=== PATIENT | female | born 1960 | race Two or more races ===

== ENCOUNTER 2018-01-04 17:31 | Emergency (ER) | payer OTHER ==
[~2018-01-04] VITALS: Ht 149.9 cm; Wt 92.5 kg
--- NOTE | 2018-01-04 17:35 | NUR ---
AAOX3, CAME TO ER C/O EPIGASTRIC PAIN X 3 DAYS, NAUSEOUS BUT DENIES VOMITING. AWAITING MD FOR EVAL. TOOK JOHN AYOUB.
[2018-01-04 18:19] LABS: BASOPHILS % (AUTO) 0.3 % (0.0-2.0); EOSINOPHILS % (AUTO) 1.1 % (0.0-6.0); HEMATOCRIT 34 % (33-45); HEMOGLOBIN 10.9 g/dL (11.5-14.8); LYMPHOCYTES # (AUTO) 1.9 /CMM (0.8-4.8); LYMPHOCYTES % (AUTO) 29.9 % (20.0-44.0); MEAN CORPUSCULAR HEMOGLOBIN 27 PG (26.0-33.0); MEAN CORPUSCULAR HGB CONC 32 g/dl (31.0-36.0); MEAN CORPUSCULAR VOLUME 82 fL (82-100); MONOCYTES # (AUTO) 0.4 /CMM (0.1-1.30); MONOCYTES % (AUTO) 6.5 % (2.0-12.0); NEUTROPHILS % (AUTO) 62.2 % (43.0-81.0); PLATELET COUNT (AUTO) 436 /CMM (150-450); RDW COEFFICIENT OF VARIATION 16.8 (11.5-15.0); WHITE BLOOD COUNT (AUTO) 6.4 K/uL (4.3-11.0)
[2018-01-04 18:27] LABS: CALCIUM, SERUM 8.7 mg/dL (8.5-10.1); CARBON DIOXIDE 32 mmol/L (21-32); CHLORIDE 100 mmol/L (98-107); CREATININE 0.8 mg/dL (0.6-1.3); GLUCOSE 104 mg/dL (74-106); POTASSIUM 3.3 mmol/L (3.5-5.1); SODIUM SERUM 136 mmol/L (136-145); UREA NITROGEN, BLOOD 8 mg/dL (7-18)
[2018-01-04 18:33] LABS: ALANINE AMINOTRANSFERASE 15 U/L (12-78); ALKALINE PHOSPHATASE 88 U/L (46-116); ASPARTATE AMINOTRANSFERASE 13 U/L (15-37); BILIRUBIN,DIRECT 0.1 mg/dL (0.0-0.2); BILIRUBIN,TOTAL 0.4 mg/dL (0.2-1.0); LIPASE 158 U/L (73-393); TOTAL PROTEIN, SERUM 7.4 g/dL (6.4-8.2)
[2018-01-04 18:35] LABS: TROPONIN I < 0.017 ng/mL (0.00-0.056)
[2018-01-04 18:36] LABS: INR 0.94 (0.85-1.15)
[2018-01-04 18:53] LABS: APPEARANCE,URINE Clear (CLEAR); BILIRUBIN,URINE Negative (NEGATIVE); BLOOD, URINE Negative Ery/uL (NEGATIVE); COLOR,URINE Yellow (YELLOW); KETONES,URINE Negative (NEGATIVE); LEUKOCYTE ESTERASE ,URINE Moderate (NEGATIVE); NITRITE, URINE Negative (NEGATIVE); PH,URINE 5.5 (5.0-8.0); PROTEIN,URINE Negative (NEGATIVE); UGLUCOSE Negative (NEGATIVE); UROBILINOGEN,URINE 0.2 EU/dL (0.2)
--- NOTE | 2018-01-04 19:14 | NUR ---
REPORT GIVEN TO CATERINA WARREN FOR HUMBERTO.
[2018-01-04 19:43] LABS: BACTERIA,URINE Few /HPF (None Seen); RBC,URINE 0-2 /HPF (0-2); SQUAMOUS EPITHELIAL CELL,UR Few /HPF (None Seen)
[2018-01-04] MEDS ORDERED: CEFTRIAXONE 1 G VIAL ONE (20:15)
[2018-01-04] MEDS ORDERED: CEFTRIAXONE 1GM BAG (ER ONLY) 1 GM/50 ML PIGGYBACK IV ONE (20:30)
[2018-01-04 20:43] VITALS: BP 125/84
== END 2018-01-04 20:44 | disposition home or self-care (01) ==
LOC: ER 17:37
DX: N39.0 Urinary tract infection, site not specified (principal); E11.9 Type 2 diabetes mellitus without complications; Z85.3 Personal history of malignant neoplasm of breast; Z90.12 Acquired absence of left breast and nipple
CPT/HCPCS: 36415; 80048; 80076; 81001; 83690; 84484; 85025; 85730; 87086; 93005; 96365; 99285; A4216; A4606; J0696; Z7610; 81000-TC

== ENCOUNTER 2018-01-18 01:05 | Inpatient (IN) | payer OTHER ==
[~2018-01-18] VITALS: Ht 139.7 cm; Wt 82.6 kg
--- NOTE | 2018-01-18 01:20 | NUR ---
BIB [facility] C/C OF NEAR SYNCOPAL EPISODE. PT AA/OX4. "I HAVE BEEN THROWING UP BLOOD FOR THE PAST 4 DAYS AFTER MY CHEMOTHERAPY TREATMENT." NO S/S OF SOB. NO TRAUMA NOTED. SKIN PINK, WARM, DRY. PEDAL PULSES PRESENT. MOVES ALL EXTREMITIES WELL. NAD. VSS. STABLE CONDITION. WILL CONTINUE TO MONITOR.
[2018-01-18] MEDS ORDERED: ONDANSETRON 4 MG TAB.RAPDIS ONE (02:29)
[2018-01-18] MEDS ORDERED: IV NS 0.9% 1,000 ML BAG IV ONE ×2 (02:30→04:00)
[2018-01-18] MEDS ORDERED: ONDANSETRON 4 MG TAB.RAPDIS PO ONE (02:30)
[2018-01-18 02:42] LABS: BASOPHILS % (AUTO) 0.2 % (0.0-2.0); EOSINOPHILS % (AUTO) 0.1 % (0.0-6.0); HEMATOCRIT 41 % (33-45); HEMOGLOBIN 13.2 g/dL (11.5-14.8); LYMPHOCYTES # (AUTO) 0.8 /CMM (0.8-4.8); LYMPHOCYTES % (AUTO) 8.6 % (20.0-44.0); MEAN CORPUSCULAR HGB CONC 32 g/dl (31.0-36.0); MEAN CORPUSCULAR VOLUME 81 fL (82-100); MONOCYTES # (AUTO) 0.5 /CMM (0.1-1.30); MONOCYTES % (AUTO) 4.8 % (2.0-12.0); NEUTROPHILS % (AUTO) 86.3 % (43.0-81.0); RDW COEFFICIENT OF VARIATION 17.6 (11.5-15.0); RED BLOOD CELL COUNT(AUTO) 5.07 MIL/uL (4.0-5.2); WHITE BLOOD COUNT (AUTO) 9.3 K/uL (4.3-11.0)
[2018-01-18 02:47] LABS: PLATELET COUNT (AUTO) 47 /CMM (150-450)
[2018-01-18 03:03] LABS: ALBUMIN 3.2 g/dL (3.4-5.0); BILIRUBIN,DIRECT 0.1 mg/dL (0.0-0.2); BILIRUBIN,TOTAL 0.9 mg/dL (0.2-1.0); CALCIUM, SERUM 8.8 mg/dL (8.5-10.1); CREATININE 2.1 mg/dL (0.6-1.3); TOTAL PROTEIN, SERUM 8.9 g/dL (6.4-8.2)
[2018-01-18 03:09] LABS: POTASSIUM 2.7 mmol/L (3.5-5.1)
[2018-01-18 03:15] LABS: BAND % (MANUAL) 3 % (0.0-5.0); LYMPHOCYTES % (MANUAL) 11 % (16-48); MONOCYTES % (MANUAL) 5 % (0-11.0); NEUTROPHILS % (MANUAL) 81 (42-76)
[2018-01-18 03:19] LABS: INR 1.1 (0.87-1.13)
[2018-01-18] MEDS: POTASSIUM CL. PREMIX PERIPHER. 50 ML IV SCH ×4 (03:30→13:13)
[2018-01-18] MEDS ORDERED: POTASSIUM CL. PREMIX PERIPHER. 50 ML ONE ×2 (03:32→04:15)
--- NOTE | 2018-01-18 03:35 | NUR ---
BROUGHT TO CT
[2018-01-18] MEDS ORDERED: HYDROCODONE/APAP 5/325MG 1 EACH TABLET PO PRN (04:00)
[2018-01-18] MEDS ORDERED: ZOLPIDEM TARTRATE 5 MG TABLET PO PRN (04:00)
[2018-01-18] MEDS ORDERED: MAGNESIUM HYDROXIDE 30 ML UDC PO PRN (04:00)
[2018-01-18] MEDS ORDERED: ONDANSETRON HCL/PF 4 MG/2 ML VIAL IVP PRN (04:00)
[2018-01-18] MEDS ORDERED: MAG HYDROX/AL HYDROX/SIMETH 30 ML UDC PO PRN (04:00)
[2018-01-18] MEDS ORDERED: ENOXAPARIN SODIUM 40 MG/0.4 ML DISP.SYRIN SQ SCH (04:00)
[2018-01-18] MEDS ORDERED: ACETAMINOPHEN 325 MG TABLET PO PRN (04:00)
[2018-01-18] MEDS ORDERED: Z GUARD REMEDY 2 OZ OINT TP PRN (04:00)
[2018-01-18] MEDS ORDERED: MORPHINE SULFATE INJ 4 MG/ML DISP.SYRIN IV PRN (04:00)
--- NOTE | 2018-01-18 04:22 | NUR ---
RESTING IN BED COMFORTABLY WITH FAMILY AT BEDSIDE. VSS. NAD. STABLE CONDITION.
[2018-01-18] MEDS ORDERED: DEXTROSE 50%-WATER 50 ML DISP.SYRIN IV PRN (04:30)
--- NOTE | 2018-01-18 05:16 | NUR ---
ROAD TESTED PER VERBAL ORDERED BY . PT AMUBLATED WITH STEADY GAIT AND WELL TOLERATED.
--- NOTE | 2018-01-18 06:30 | NUR ---
REPORT GIVEN TO ASH CHINCHILLA
[2018-01-18 07:00] LABS: CALCIUM, SERUM 7.7 mg/dL (8.5-10.1); CREATININE 1.6 mg/dL (0.6-1.3); MAGNESIUM 1.9 mg/dL (1.8-2.4); POTASSIUM 3.1 mmol/L (3.5-5.1)
--- NOTE | 2018-01-18 07:14 | NUR ---
ENDORSED TO ONCOMING SHIFT CATERINA OLIVIER. PT STABLE CONDITION. VSS. NAD. FAMILY AT BEDSIDE.
--- NOTE | 2018-01-18 07:45 | NUR ---
INSULIN LANTUS NOT GIVEN PER NIGHTSHIFT EXECUTIVE CONSULTANT CEDRIC
--- NOTE | 2018-01-18 09:40 | NUR ---
PATIENT TRANSPORTED TO [facility]. VSS
[2018-01-18] MEDS ORDERED: INSULIN GLARGINE, 100 UNIT/ML CARTRIDGE SQ ONE ×2 (09:43→15:00)
[2018-01-18 10:00] VITALS: BP 91/49
--- NOTE | 2018-01-18 10:30 | NUR ---
HAND PACKER/PACKAGERBOW STAPLER 57 years old female admitted for syncope. Patient ambulates with assist, A/O X4, skin intact. No complaint of pain, denies nausea, no vomiting. Orientation to room, unit, staff and place call light within reach. Will notify MD for admission.
[2018-01-18] MEDS ORDERED: INSU100V27 SQ (10:38)
[2018-01-18] MEDS ORDERED: INSU300I SQ (10:38)
[2018-01-18] MEDS ORDERED: DOCU-141 PO (10:38)
[2018-01-18] MEDS ORDERED: METF-440 PO (10:38)
[2018-01-18] MEDS ORDERED: ATEN50TA PO (10:38)
[2018-01-18] MEDS ORDERED: ENAL10TA PO (10:38)
[2018-01-18] MEDS ORDERED: LORA0.5T PO (10:38)
[2018-01-18] MEDS ORDERED: TRAM50TA2 PO (10:38)
[2018-01-18] MEDS ORDERED: ASPI-1152 PO (10:38)
[2018-01-18] MEDS ORDERED: FERR325T23 PO (10:38)
[2018-01-18] MEDS ORDERED: ATOR10TA PO (10:38)
[2018-01-18 10:48] VITALS: BP 91/49
[2018-01-18] MEDS: IV NS 0.9% 1,000 ML IV PRN ×2 (10:53→21:51)
[2018-01-18] MEDS ORDERED: POTASSIUM CHLORIDE 20 MEQ TAB.PRT.SR PO ONE (11:30)
[2018-01-18 12:46] LABS: IRON, SERUM 18 ug/dl (50-175); TOTAL IRON BINDING CAPACITY 275 ug/dl (250-450)
[2018-01-18] MEDS: BLOOD SUGAR DIAGNOSTIC 1 EACH STRIP IN SCH ×3 (12:55→21:25)
[2018-01-18] MEDS: INSULIN REGULAR, HUMAN 100 UNIT/ML 3 ML VIAL SQ PRN ×2 (13:01→17:49)
[2018-01-18 13:05] LABS: CHOLESTEROL 101 mg/dL (<200); HDL CHOLESTEROL 14 mg/dL (40-60); LDL 67 mg/dL (0-99); THYROID STIMULATING HORMONE 1.597 uIU/mL (0.358-3.74); TRIGLYCERIDES 164 mg/dL (30-150)
[2018-01-18 15:43] LABS: FERRITIN 3908 ng/mL (8-388)
[2018-01-18 16:00] VITALS: BP 107/59
--- NOTE | 2018-01-18 19:00 | NUR ---
MEDICAL ASSISTANT SECRETARY CLOSING NOTES Patient is sitting up in bed, had dinner with fair appetite. Sinus rhythm HR 98 in the telemonitor. IVF infusing. Patient is cooperative, ambulates independently, standby assist. Blood sugar monitor with ISS parameter. Potassium supplemented today. No N/V during the shift, no stool, no episode of diarrhea. Home medication for recon. Dr. Davidson Bailey was informed. Will endorse to oncoming RN.
[2018-01-18 20:06] VITALS: BP 133/60
--- NOTE | 2018-01-18 21:00 | NUR ---
TRANSPORTATION MAINTENANCE SPECIALIST NOTES BS CHECKED 145. PT REFUSED TO HAVE 2 UNITS REGULAR INSULIN. EXPLAINED TO PT IMPORTANCE OF INSULIN IN HER POC BUT PT STILL REFUSED. WILL CONTINUE TO MONITOR.
[2018-01-18 23:04] LABS: TROPONIN I < 0.017 ng/mL (0.00-0.056)
[2018-01-19 00:38] VITALS: BP 112/57
[2018-01-19] MEDS: BLOOD SUGAR DIAGNOSTIC 1 EACH STRIP IN SCH ×6 (01:13→21:35)
[2018-01-19 04:00] VITALS: BP 128/65
--- NOTE | 2018-01-19 06:46 | NUR ---
HALL COORDINATOR NOTES AWAKE & RESPONSIVE. NOT IN ANY DISTRESS. NO SOB NOTED. DENIES ANY PAIN OR DISCOMFORT AT THIS TIME. ON TELE SR @ 93 WITH IVF INFUSING WELL. MONITORED ACCORDINGLY. CALL LIGHT WITHIN REACH. BED IN LOWEST POSITION. SR UP X 2 FOR SAFETY. WILL ENDORSE TO NEXT SHIFT.
[2018-01-19 07:25] LABS: BASOPHILS % (AUTO) 0.4 % (0.0-2.0); EOSINOPHILS % (AUTO) 0.4 % (0.0-6.0); HEMATOCRIT 36 % (33-45); HEMOGLOBIN 11.6 g/dL (11.5-14.8); LYMPHOCYTES # (AUTO) 1.2 /CMM (0.8-4.8); LYMPHOCYTES % (AUTO) 14.1 % (20.0-44.0); MEAN CORPUSCULAR HGB CONC 32 g/dl (31.0-36.0); MEAN CORPUSCULAR VOLUME 81 fL (82-100); MONOCYTES # (AUTO) 0.8 /CMM (0.1-1.30); NEUTROPHILS # (AUTO) 6.3 /CMM (1.8-8.9); NEUTROPHILS % (AUTO) 76.1 % (43.0-81.0); PLATELET COUNT (AUTO) 63 /CMM (150-450); RED BLOOD CELL COUNT(AUTO) 4.45 MIL/uL (4.0-5.2); WHITE BLOOD COUNT (AUTO) 8.3 K/uL (4.3-11.0)
[2018-01-19 07:40] LABS: ALANINE AMINOTRANSFERASE 11 U/L (12-78); ALBUMIN 2.5 g/dL (3.4-5.0); ALKALINE PHOSPHATASE 105 U/L (46-116); ASPARTATE AMINOTRANSFERASE 43 U/L (15-37); BILIRUBIN,TOTAL 0.5 mg/dL (0.2-1.0); CALCIUM, SERUM 7.9 mg/dL (8.5-10.1); CARBON DIOXIDE 21 mmol/L (21-32); CHLORIDE 100 mmol/L (98-107); CREATININE 1.2 mg/dL (0.6-1.3); GLUCOSE 111 mg/dL (74-106); PHOSPHORUS 2.1 mg/dL (2.5-4.9); SODIUM SERUM 134 mmol/L (136-145); TOTAL PROTEIN, SERUM 7.3 g/dL (6.4-8.2); UREA NITROGEN, BLOOD 25 mg/dL (7-18)
[2018-01-19 07:41] LABS: POTASSIUM 2.3 mmol/L (3.5-5.1)
[2018-01-19 07:42] LABS: TROPONIN I < 0.017 ng/mL (0.00-0.056)
[2018-01-19] MEDS: IV NS 0.9% 1,000 ML IV PRN ×2 (07:47→21:35)
[2018-01-19 08:00] VITALS: BP 108/55
[2018-01-19] MEDS ORDERED: POTASSIUM PHOSPHATE MM 15 MMOL in IV D5W 250 ML IV SCH (08:00)
--- NOTE | 2018-01-19 08:00 | NUR ---
RN NOTES CRITICAL LEVEL RESULT OF POTASSIUM RELAYED TO DR. CRENSHAW AND RECEIVED NEW ORDERS.
[2018-01-19 08:33] LABS: LYMPHOCYTES % (MANUAL) 12 % (16-48); MONOCYTES % (MANUAL) 7 % (0-11.0); NEUTROPHILS % (MANUAL) 81 (42-76)
[2018-01-19] MEDS: POTASSIUM CHLORIDE 20 MEQ TAB.PRT.SR PO SCH ×5 (08:48→13:10)
[2018-01-19] MEDS: POTASSIUM PHOSPHATE MM 7.5 MMOL in IV D5W 100 ML IV SCH ×2 (09:51→13:10)
[2018-01-19] MEDS: INSULIN REGULAR, HUMAN 100 UNIT/ML 3 ML VIAL SQ PRN ×4 (10:03→23:28)
--- NOTE | 2018-01-19 10:17 | NUR ---
RN NOTES DR. DAVID GARG MADE ROUNDS, DISCUSSED PLAN OF CARE WITH PATIENT AND FAMILY. PATIENT MENTION ITCHING AND BURNING TONGUE. NO NEW ORDER FROM DR. HERNANDEZ, PER MD, ITS BECAUSE OF HER CHEMO. NEEDS ATTENDED, IVF INFUSING AND TOLERATING WELL. CALL LIGHT WITHIN REACH, WILL CONTINUE TO MONITOR.
[2018-01-19] MEDS ORDERED: MAGIC MOUTHWASH MC PRN (12:00)
[2018-01-19 16:00] VITALS: BP 125/71
--- NOTE | 2018-01-19 17:20 | NUR ---
RN NOTES PATIENT'S INSULIN HELD, PER PATIENT SHE HAS NO APPETITE AT THIS TIME, REFUSING DINNER. FAMILY WILL INFORM NURSE IF PATIENT EATS DINNER.
--- NOTE | 2018-01-19 18:52 | NUR ---
RN NOTES PATIENT A/OX4, FAMILY AT BEDSIDE, STILL WITH EPISODES OF DIARRHEA, PIV ON RIGHT HAND PATENT AND FLUSHES WELL, IVF INFUSING AND TOLERATING WELL, INSULIN GIVEN, PATIENT ATE DINNER. POTASSIUM REPLETED. INFORMED DR. HERNANDEZ THIS AM RE: MED RECONCILIATION. ALL NEEDS ATTENDED TO AND MET, CALL LIGHT WITHIN REACH, WILL ENDORSE TO BARREL ENDSHAKER ADJUSTER FOR HUMBERTO.
--- NOTE | 2018-01-19 19:15 | NUR ---
MS RN OPENING NOTES RECEIVED PATIENT SITTING UP IN A CHAIR WITH HER FAMILY. PATIENT A/OX4, STILL WITH EPISODES OF DIARRHEA, NO STOOL COLLECTION WAS ORDERED, WAS MADE AWARE BUT NO NEW ORDER, PER AM RN REPORT. IV ACCESS ON RIGHT HAND, WITH SLIGHT SWELLING BUT PT REFUSED TO CHANGE IV CATH AT THIS TIME & DOES NOT WANT TO BE CONNECTED TO IFV WELL FOR NOW. PT ONLY PREFERS TO USE BRP, REFUSED TO USE BSC WHEN OFFERED DUE TO SYNCOPE DIAGNOSIS. PATIENT ATE BREAKFAST,LUNCH,DINNER & TOLERATED WELL, NO N/V EXPERIENCED PER PT. INSTRUCTED THE PT TO CALL FOR HELP WHEN NEEDS TO GET OOB FOR SAFETY, PT & SON NARDA VERBALIZED UNDERSTANDING. BED IN LOW LOCKED POSITION. SAFETY MEASURES IN PLACE. CALL LIGHT WITHIN REACH, WILL MONITOR CLOSELY.
[2018-01-19 20:00] VITALS: BP 140/65
--- NOTE | 2018-01-19 20:27 | NUR ---
NEW IV CATH INSERTED PATIENT'S IV CATH SITE NOTED TO BE SLIGHTLY SWOLLEN, LEAKING & CAUSING MILD DISCOMFORT. EARLIER PT REFUSED TO CHANGE THE IV SITE WHEN IT NOTED TO BE SLIGHTLY SWOLLEN & SHE WANTED TO BE DISCONNECTED FROM FLUIDS FOR A WHILE WHILE SITTING IN A CHAIR WITH HER FAMILY AT BED SIDE. BUT EXPLAINED TO THE PT ABOUT RISKS OF SWOLLEN & LEAKING SITE & PT AGREED TO LET THE NURSE CHANGE IV CATH. NEW IV CATH INSERTED TO RIGHT FOREARM G # 22 WITH GOOD BLOOD RETURN. NO INFILTRATION OR DISCOMFORT NOTED AT THIS TIME. PROCEDURE TOLERATED WELL BY THE PT. WILL CONTINUE TO MONITOR CLOSELY.
[2018-01-19 20:45] VITALS: BP 123/59
--- NOTE | 2018-01-19 21:23 | NUR ---
Met with patient,spouse and sons Jordna & Eh.Patient is alert and pleasant, her primary language Thai and speaks some Syriac. She lives locally with her spouse and son on the 4th floor apartment that has elevator access. She has hx of Stage 4 metastatic breast cancer on chemotherapy. Prior to admission, she was ambulatory and independent with adl's. Has no DME or homehealth reported, receives 63hrs/month IHSS. She has good family support. Patient plan to return home, family will provide ride when discharge. Addendum: 01/19/18 at 2125 by KALIE NATH RN Amended: Links added.
[2018-01-20] MEDS: BLOOD SUGAR DIAGNOSTIC 1 EACH STRIP IN SCH ×4 (01:35→12:59)
--- NOTE | 2018-01-20 02:00 | NUR ---
MS RN NOTES - ASSUME OF CARE Assumed care of patient. Patient asleep on semi-Bruce's position with son at bedside. With patent peripheral IV line FRA G#22 with NS infusing well @ 150ml/hr as ordered. Call light at bedside within easy reach. Kept bed low, locked and siderails up X2. Will monitor accordingly.
[2018-01-20] MEDS: INSULIN REGULAR, HUMAN 100 UNIT/ML 3 ML VIAL SQ PRN ×3 (04:41→13:26)
--- NOTE | 2018-01-20 04:42 | NUR ---
MS RN NOTES Blood sugar is 149. Patient refused to take insulin at this time, explained the risk 3x, patient insist to refused. Will continue to monitor accordingly.
[2018-01-20] MEDS: IV NS 0.9% 1,000 ML IV PRN (05:58)
--- NOTE | 2018-01-20 07:04 | NUR ---
MS RN CLOSING NOTES Patient asleep on semi-Bruce's position with patent peripheral IV line RFA G#22 with NS infusing well @ 150ml/hr as ordered. Able to ambulate self to toilet as needed. Son remains at bedside at all times throughout the shift. Remains free from injury, bed kept low and locked. For repeat blood works this AM. 0600AM weight - 181.8lbs, on bedscale. No loss bowel movement withint the shift. No complaints made, remains afebrile at this time. All needs attended. Call light within easy reach. Endorsed to the next shift.
--- NOTE | 2018-01-20 07:27 | NUR ---
RN OPENING NOTES RECEIVED PT. PT IS STABLE AND SLEEPING IN BED. NO S/S OF RESP DISTRESS OR SOB. PT DOES NOT APPEAR TO BE IN PAIN AT THIS TIME. PT ON RA WITH O2 SAT WNL. IV ACCESS LOCATED ON RFA 22G INFUSING NS AT 150/HR. PER BIOMEDICAL REPAIR TECHNICIAN REPORT, PT TO BE D/C TODAY 01/20/18. AWAITING MD ORDER AND [employer]. SAFETY MEASURES IN PLACE, CALL LIGHT WITHIN REACH. WILL CONTINUE TO MONITOR.
[2018-01-20 07:37] LABS: ALBUMIN 2.3 g/dL (3.4-5.0); BILIRUBIN,TOTAL 0.6 mg/dL (0.2-1.0); CALCIUM, SERUM 7.8 mg/dL (8.5-10.1); CREATININE 1.2 mg/dL (0.6-1.3); PHOSPHORUS 2.4 mg/dL (2.5-4.9); TOTAL PROTEIN, SERUM 7.2 g/dL (6.4-8.2)
[2018-01-20 07:51] LABS: BASOPHILS % (AUTO) 0.1 % (0.0-2.0); EOSINOPHILS % (AUTO) 0.7 % (0.0-6.0); HEMATOCRIT 34 % (33-45); HEMOGLOBIN 10.9 g/dL (11.5-14.8); LYMPHOCYTES # (AUTO) 1.1 /CMM (0.8-4.8); LYMPHOCYTES % (AUTO) 15.1 % (20.0-44.0); MEAN CORPUSCULAR HGB CONC 32 g/dl (31.0-36.0); MEAN CORPUSCULAR VOLUME 81 fL (82-100); MONOCYTES # (AUTO) 0.7 /CMM (0.1-1.30); MONOCYTES % (AUTO) 10.3 % (2.0-12.0); NEUTROPHILS # (AUTO) 5.3 /CMM (1.8-8.9); NEUTROPHILS % (AUTO) 73.8 % (43.0-81.0); PLATELET COUNT (AUTO) 88 /CMM (150-450); RDW COEFFICIENT OF VARIATION 17.8 (11.5-15.0); RED BLOOD CELL COUNT(AUTO) 4.23 MIL/uL (4.0-5.2); WHITE BLOOD COUNT (AUTO) 7.2 K/uL (4.3-11.0)
[2018-01-20 07:58] LABS: POTASSIUM 2.7 mmol/L (3.5-5.1)
[2018-01-20 08:00] VITALS: BP 131/62
[2018-01-20 08:55] LABS: BAND % (MANUAL) 1 % (0.0-5.0); EOSINOPHILS % (MANUAL) 2 % (0-4); LYMPHOCYTES % (MANUAL) 9 % (16-48); MONOCYTES % (MANUAL) 5 % (0-11.0); NEUTROPHILS % (MANUAL) 83 (42-76)
[2018-01-20 09:00] VITALS: BP 131/62
[2018-01-20] MEDS ORDERED: POTASSIUM CHLORIDE 10 MEQ/50 ML PREMIXED IVPB FOR PERIPHERAL LINE IV SCH (11:00)
[2018-01-20] MEDS ORDERED: POTASSIUM CHLORIDE 20 MEQ TAB.PRT.SR PO SCH (11:00)
[2018-01-20] MEDS: POTASSIUM CL. PREMIX PERIPHER. 50 ML IV SCH ×4 (11:22→13:21)
[2018-01-20] MEDS ORDERED: IV NS 0.9% 1,000 ML IV PRN (11:29)
[2018-01-20] MEDS ORDERED: K PHOS NEUTRAL 250 MG TABLET PO ONE (14:00)
[2018-01-20 16:00] VITALS: BP 132/64
[2018-01-20] MEDS ORDERED: POTA20TA83 PO (16:15)
--- NOTE | 2018-01-20 18:46 | NUR ---
DISCHARGE NOTE PT DISCHARGED HOME. NO S/S OF RESP DISTRESS/SOB. NO C/O PAIN. PRESCRIPTION GIVEN TO PT. D/C TEACHIGN PERFORMED, PT VERBALIZES UNDERSTANDING. DC INSTRUCTIONS/BELONGINGS SHEET SIGNED, COPIED, PLACED IN CHART. ID BAND AND IV ACCESS REMOVED. NO WOUND PHOTOS TO BE TAKEN. STABLE UPON DC. LEFT HOSPITAL WITH FAMILY IN PRIVATE CAR.
== END 2018-01-20 18:30 | disposition home or self-care (01) | DRG 469 ==
LOC: ER 01:10 → TELE 09:15 → MED 01-19 09:00
PROVIDERS: ADMIT Internal Medicine; ATTEND Internal Medicine
DX: N17.9 Acute kidney failure, unspecified (principal); D69.59 Other secondary thrombocytopenia; C79.9 Secondary malignant neoplasm of unspecified site; E11.65 Type 2 diabetes mellitus with hyperglycemia; E44.1 Mild protein-calorie malnutrition; C50.919 Malignant neoplasm of unspecified site of unspecified female breast; E86.0 Dehydration; E87.1 Hypo-osmolality and hyponatremia; E86.9 Volume depletion, unspecified; E87.6 Hypokalemia; I10 Essential (primary) hypertension; Z90.12 Acquired absence of left breast and nipple; E66.9 Obesity, unspecified; E78.5 Hyperlipidemia, unspecified; T45.1X5A Adverse effect of antineoplastic and immunosuppressive drugs, initial encounter; Y92.009 Unspecified place in unspecified non-institutional (private) residence as the place of occurrence of the external cause; E88.09 Other disorders of plasma-protein metabolism, not elsewhere classified; Z68.41 Body mass index [BMI] 40.0-44.9, adult; Z79.84 Long term (current) use of oral hypoglycemic drugs
CPT/HCPCS: 36415; 70450-TC; 71045-TC; 80048-TC; 80053-TC; 80061-TC; 80076-TC; 82728-TC; 82962-TC; 83540-TC; 83735-TC; 84100-TC; 84439-TC; 84443-TC; 84484-TC; 85025-TC; 85730-TC; 87081-TC; 93307-TC; A4606; J1815; J3480; J3490; J7030; J7060; Q0162; Z7610

== ENCOUNTER 2018-04-09 14:22 | Inpatient (IN) | payer OTHER ==
[~2018-04-09] VITALS: Ht 162.6 cm; Wt 89.4 kg
[~2018-04-09 14:22] MED LIST: ATEN50TA PO; ATOR10TA PO; DOCU-141 PO; ENAL10TA PO; FERR325T23 PO; INSU100V27 SQ; INSU300I SQ; LORA0.5T PO; METF-440 PO; POTA20TA83 PO; TRAM50TA2 PO
--- NOTE | 2018-04-09 14:55 | NUR ---
DR CRUM AT BEDSIDE FOR EVAL.
--- NOTE | 2018-04-09 14:58 | NUR ---
PT SATTING LOW. ERMD AWARE. PT PLACED ON 15L/MIN NON REBREATHER.
--- NOTE | 2018-04-09 15:01 | NUR ---
RADIOLOGY AT BEDSIDE FOR CHEST XRAY.
--- NOTE | 2018-04-09 16:53 | NUR ---
ULTRASOUND GUIDED THORACENTESIS DONE. 1240ML OF FLUIDS. RADIOLOGY AT BEDSIDE FOR STAT CHEST XRAY.
--- NOTE | 2018-04-09 17:07 | NUR ---
PT PLACED ON O2@4L/MIN AND SATTING AT 96%. ERMD MADE AWARE.
--- NOTE | 2018-04-09 17:52 | NUR ---
PT IS SLEEPING ON MONITOR W/ STABLE VITALS. FAMILY AT BEDSIDE. WILL CONTINUE TO MONITOR.
--- NOTE | 2018-04-09 19:14 | NUR ---
REPORT GIVEN TO ALBAN DIGGS FOR HUMBERTO.
--- NOTE | 2018-04-09 20:33 | NUR ---
PT STATES SHE IS DOING "FINE", FEELING BETTER. SITTING ON EDGE OF BED WITH AND SON AT BEDSIDE. VSS.
--- NOTE | 2018-04-09 20:59 | NUR ---
PER DR CRUM, PT PLACED ON HIGH FLOW O2, 15L VIA NRB MASK.
--- NOTE | 2018-04-09 21:12 | NUR ---
ICU 257
--- NOTE | 2018-04-09 21:18 | NUR ---
NO KOHLER CATH PER DR CRUM
[2018-04-09 21:35] LABS: BASOPHILS # (AUTO) 0.1 /CMM (0.0-0.2); EOSINOPHILS % (AUTO) 0.8 % (0.0-6.0); HEMATOCRIT 30 % (33-45); HEMOGLOBIN 9.2 g/dL (11.5-14.8); LYMPHOCYTES # (AUTO) 1.5 /CMM (0.8-4.8); LYMPHOCYTES % (AUTO) 21.8 % (20.0-44.0); MEAN CORPUSCULAR HGB CONC 31 g/dl (31.0-36.0); MEAN CORPUSCULAR VOLUME 77 fL (82-100); MONOCYTES # (AUTO) 0.4 /CMM (0.1-1.30); MONOCYTES % (AUTO) 5.3 % (2.0-12.0); NEUTROPHILS % (AUTO) 71.1 % (43.0-81.0); PLATELET COUNT (AUTO) 459 /CMM (150-450); RED BLOOD CELL COUNT(AUTO) 3.87 MIL/uL (4.0-5.2)
[2018-04-09 21:44] LABS: CALCIUM, SERUM 8.7 mg/dL (8.5-10.1); CREATININE 0.6 mg/dL (0.6-1.3); POTASSIUM 4.5 mmol/L (3.5-5.1)
--- NOTE | 2018-04-09 21:58 | NUR ---
PER DESIGN ENGINEER AGRICULTURAL EQUIPMENT ED, THEY NEED 10 MORE MINUTES BEFORE REPORT
[2018-04-09] MEDS ORDERED: ACETAMINOPHEN 325 MG TABLET PO PRN (22:00)
[2018-04-09] MEDS ORDERED: DEXTROSE 50%-WATER 50 ML DISP.SYRIN IV PRN (22:00)
[2018-04-09] MEDS ORDERED: MAG HYDROX/AL HYDROX/SIMETH 30 ML UDC PO PRN (22:00)
[2018-04-09] MEDS ORDERED: LORAZEPAM 0.5 MG TABLET PO PRN (22:00)
[2018-04-09] MEDS ORDERED: HYDROCODONE/APAP 5/325MG 1 EACH TABLET PO PRN (22:00)
[2018-04-09] MEDS ORDERED: ONDANSETRON HCL/PF 4 MG/2 ML VIAL IVP PRN (22:00)
[2018-04-09] MEDS ORDERED: Z GUARD REMEDY 2 OZ OINT TP PRN (22:00)
[2018-04-09] MEDS ORDERED: TRAMADOL HCL 50 MG TABLET PO PRN (22:00)
[2018-04-09] MEDS ORDERED: MAGNESIUM HYDROXIDE 30 ML UDC PO PRN (22:00)
[2018-04-09] MEDS ORDERED: MORPHINE SULFATE INJ 2 MG/ML DISP.SYRIN IV PRN (22:00)
[2018-04-09] MEDS: BLOOD SUGAR DIAGNOSTIC 1 EACH STRIP VI SCH (22:00)
--- NOTE | 2018-04-09 22:00 | NUR ---
PT RESTING COMFORTABLY IN ER BED ON MONITOR WITH NRB MASK AT 15L. ALL NEEDS ATTENDED TO. UPDATED FAMILY ON PLAN OF CARE.
--- NOTE | 2018-04-09 22:06 | NUR ---
REPORT GIVEN TO CLUB WAITER/WAITRESS ED
[2018-04-09] MEDS ORDERED: ALBUTEROL FS 2.5 MG/3 ML VIAL.NEB NEB PRN (22:30)
--- NOTE | 2018-04-09 22:30 | NUR ---
XRAY AT BEDSIDE
--- NOTE | 2018-04-09 23:01 | NUR ---
PT REQUESTS BLOOD GLUCOSE CHECK, [id number]
[2018-04-09 23:33] VITALS: BP 152/72
[2018-04-09 23:35] VITALS: BP 152/72
[2018-04-10] VITALS (26 sets, daily range): BP systolic 96–152; BP diastolic 43–75
--- NOTE | 2018-04-10 02:21 | NUR ---
RADAR TECHNICIAN PT WAS ADMITTED FROM ER WITH DIAGNOSIS ACUTE RESPIRATORY FAILURE WITH HYPOXIA SECONDARY TO EFFUSION, PNEUMOTHORAX. PT HAS HISTORY OF LEFT BREAST CA WITH MTS TO THE LUNGS, S/P CHEMO & RADIATION THERAPY. PT HAD LARGE MALIGNANT PLEURAL EFFUSION ON LEFT SIDE. US GUIDED THERAPEUTIC THORACENTESIS DONE AND 1250 ML OF DARK YELLOW LIQUID WAS REMOVED. PT IS AWAKE, ALERT, ORIENTED x 3. SPEECH CLEAR, FOLLOW COMMANDS, MOVES ALL EXTREMITIES, LEGS ARE WEAK. PT IS COMFORTABLE, DENIES SOB AND PAIN. PT IS ON NRBM 15 L. TOLERATES WELL. LUNGS SOUND CLEAR, DIMINISHED.VSS, AFEBRILE, SCOPE-SR. WILL CONTINUE CLOSE MONITORING.
[2018-04-10 04:45] LABS: BASOPHILS % (AUTO) 0.4 % (0.0-2.0); EOSINOPHILS % (AUTO) 1.1 % (0.0-6.0); HEMATOCRIT 30 % (33-45); LYMPHOCYTES # (AUTO) 1.6 /CMM (0.8-4.8); LYMPHOCYTES % (AUTO) 25.5 % (20.0-44.0); MEAN CORPUSCULAR HGB CONC 30 g/dl (31.0-36.0); MEAN CORPUSCULAR VOLUME 77 fL (82-100); MONOCYTES # (AUTO) 0.4 /CMM (0.1-1.30); MONOCYTES % (AUTO) 6.3 % (2.0-12.0); NEUTROPHILS # (AUTO) 4.2 /CMM (1.8-8.9); NEUTROPHILS % (AUTO) 66.7 % (43.0-81.0); PLATELET COUNT (AUTO) 409 /CMM (150-450); RED BLOOD CELL COUNT(AUTO) 3.88 MIL/uL (4.0-5.2); WHITE BLOOD COUNT (AUTO) 6.2 K/uL (4.3-11.0)
[2018-04-10 05:09] LABS: CREATININE 0.6 mg/dL (0.6-1.3); MAGNESIUM 1.8 mg/dL (1.8-2.4); PHOSPHORUS 3.6 mg/dL (2.5-4.9); POTASSIUM 4.2 mmol/L (3.5-5.1)
--- NOTE | 2018-04-10 07:00 | NUR ---
RN NOTE PATIENT TOLERATED NON-REBREATHER WELL, NO SOB NOTED, NO RESPIRATORY DISTRESS NOTED, ENDORSED TO AM SHIFT TO CONTINUE TO MONITOR PATIENT
--- NOTE | 2018-04-10 07:05 | NUR ---
RN NOTES RECEIVED PT ON BED, A/OX4,SPEECH CLEAR, FOLLOW COMMANDS, MOVES ALL EXTREMITIES, ON NON REBREATHING MASK MASK , NO SOB NOTED , SUPPORTIVE FAMILY AT THE BEDSIDE, ON TELE SR HR IN 90'S R AC IV SITE G 20 CLEAN ,DRY AND INTACT, SR UP x3, CALL LIGHT WITHIN EASY REACH, BED LOCKED AND IN LOWEST POSITION , CONTINUE TO MONITOR.
[2018-04-10] MEDS: INSULIN REGULAR, HUMAN 100 UNIT/ML 3 ML VIAL SQ PRN ×3 (07:41→17:02)
[2018-04-10] MEDS: BLOOD SUGAR DIAGNOSTIC 1 EACH STRIP VI SCH ×4 (07:43→22:23)
[2018-04-10] MEDS: DOCUSATE SODIUM 100 MG CAPSULE PO SCH ×2 (08:06→17:01)
[2018-04-10] MEDS: FERROUS SULFATE (325 MG) 325 MG/TAB TABLET PO SCH ×2 (08:07→17:01)
[2018-04-10] MEDS: METFORMIN 500 MG TABLET PO SCH ×2 (08:07→17:01)
--- NOTE | 2018-04-10 10:32 | NUR ---
RN NOTES DR. ODONNELL NOTIFED THAT THERE IS NO PLEURAL FLUID IN LAB FOR CYTOLOGY .
[2018-04-10] MEDS: ATENOLOL 50 MG TABLET PO SCH (10:46)
[2018-04-10] MEDS: ENALAPRIL MALEATE (10 MG) 10 MG TABLET PO SCH (10:46)
--- NOTE | 2018-04-10 12:00 | NUR ---
RN NOTES PT SITTING UP ON A CHAIR , TOLERATING WELL, O2 AT 3L N/C , NO DISTRESS NOTED, CONTINUE TO MONITOR.
--- NOTE | 2018-04-10 13:37 | NUR ---
RN NOTES ABG RESULTS GIVEN TO DR ODONNELL PT PLACED ON 3L O2 N/C PER MD ORDER .
[2018-04-10 13:46] LABS: ABG BASE EXCESS 9.7 mmol/L; ABG OXYGEN SATURATION 94.3 % (92.0-98.5); ABG PCO2 58.9 mmHg (35.0-45.0); ABG PH 7.403 (7.350-7.450); ABG PO2 77.1 mmHg (75.0-100.0); COHb 0.3 % (0.5-1.5); MetHb 0.6 % (0.0-1.5); O2Hb 93.5 % (94.0-97.0); SITE, ABG Right Radial; VENT MODE, BG NASAL CANNULA
--- NOTE | 2018-04-10 14:00 | NUR ---
RN NOTES PT SITTING UP, ON 3L O2N/C, NO SOB NOTED, CONTINUE TO MONITOR .
[2018-04-10] MEDS: ATORVASTATIN 10 MG TABLET PO SCH (17:04)
--- NOTE | 2018-04-10 18:27 | NUR ---
RN NOTES PT STABLE, NO SIGNIFICANT CHANGES NOTED ON THIS SHIFT , WILL ENDOSE TO TELECOMMUNICATION TOWER TECHNICIAN NURSE FOR CONTINUITY OF CARE.
[2018-04-10] MEDS: ZOLPIDEM TARTRATE 5 MG TABLET PO PRN (21:00)
[2018-04-10] MEDS: *INSULIN REGULAR(HUMULIN R)HUM 100 UNIT/ML VIAL SQ PRN (22:29)
[2018-04-11] VITALS (15 sets, daily range): BP systolic 47–142; BP diastolic 16–75
--- NOTE | 2018-04-11 04:13 | NUR ---
EXCAVATOR OPERATOR PT IS AWAKE, ALERT, ORIENTED X 3. MOVES ALL EXTREMITIES, LEGS ARE WEAK. DENIES ANY SOB, PAIN OR AANY OTHER DISTRESS. MOST OF THE TIME SHE PREFERS TO SIT ON THE CHAIR. O 2 3 L VIA N/C. VSS, AFEBRILE, SCOPE- SR. URINE OUTPUT IS ADEQUATE. FAMILY MEMBER IS AT THE BEDSIDE AT ALL TIME, HELPING PT WITH ADL.
[2018-04-11 05:18] LABS: BASOPHILS % (AUTO) 0.3 % (0.0-2.0); EOSINOPHILS % (AUTO) 0.8 % (0.0-6.0); HEMATOCRIT 30 % (33-45); HEMOGLOBIN 9.1 g/dL (11.5-14.8); LYMPHOCYTES # (AUTO) 1.3 /CMM (0.8-4.8); LYMPHOCYTES % (AUTO) 21.1 % (20.0-44.0); MEAN CORPUSCULAR HGB CONC 31 g/dl (31.0-36.0); MEAN CORPUSCULAR VOLUME 77 fL (82-100); MONOCYTES # (AUTO) 0.4 /CMM (0.1-1.30); MONOCYTES % (AUTO) 6.1 % (2.0-12.0); NEUTROPHILS # (AUTO) 4.5 /CMM (1.8-8.9); NEUTROPHILS % (AUTO) 71.7 % (43.0-81.0); PLATELET COUNT (AUTO) 423 /CMM (150-450); RED BLOOD CELL COUNT(AUTO) 3.88 MIL/uL (4.0-5.2); WHITE BLOOD COUNT (AUTO) 6.3 K/uL (4.3-11.0)
[2018-04-11 05:42] LABS: CALCIUM, SERUM 8.6 mg/dL (8.5-10.1); CREATININE 0.8 mg/dL (0.6-1.3); POTASSIUM 4.1 mmol/L (3.5-5.1)
--- NOTE | 2018-04-11 07:15 | NUR ---
EDUCATION PROGRAM SPECIALIST OPENING RECEIVED REPORT FROM PM NURSE.PT IS AWAKE, ALERT, ORIENTED X 3.SITTING IN THE CHAIR. MOVES ALL EXTREMITIES, LEGS ARE WEAK. NO SOB, NO PAIN OR NO DISTRESS NOTE AT THIS TIME. O2 3 L VIA N/C. ON MONITOR SR HR 92. FAMILY MEMBER IS AT THE BEDSIDE .SAFETY PRECAUTIONS IN PLACE. CALL LIGHT IN REACH.WILL CONTINUE TO MONITOR.
[2018-04-11] MEDS: BLOOD SUGAR DIAGNOSTIC 1 EACH STRIP VI SCH ×4 (07:48→21:15)
[2018-04-11] MEDS: INSULIN REGULAR, HUMAN 100 UNIT/ML 3 ML VIAL SQ PRN ×3 (07:49→17:49)
--- NOTE | 2018-04-11 08:21 | NUR ---
SEEN BY ,UPDATED PATIENT CONDITION.WITH LABS.AND RESULT OF C XRAY.WILL CONTINUE TO MONITOR.
[2018-04-11] MEDS: ENALAPRIL MALEATE (10 MG) 10 MG TABLET PO SCH (08:49)
[2018-04-11] MEDS: FERROUS SULFATE (325 MG) 325 MG/TAB TABLET PO SCH ×2 (08:49→17:48)
[2018-04-11] MEDS: ATENOLOL 50 MG TABLET PO SCH (08:49)
[2018-04-11] MEDS: DOCUSATE SODIUM 100 MG CAPSULE PO SCH ×2 (08:49→17:48)
[2018-04-11] MEDS: METFORMIN 500 MG TABLET PO SCH ×2 (08:49→17:48)
--- NOTE | 2018-04-11 09:30 | NUR ---
ASSEMBLY PERSON NOTE SEEN BY UPDATED ABOUT PATIENT CONDITION,SPOKE TO FAMILY.WILL CONTINUE TO MONITOR.
--- NOTE | 2018-04-11 11:30 | NUR ---
RN NOTES PATIENT AWAKE, ALERT, ORIENTED X 4. NOT ON ANY FORM OF DISTRESS. NO COMPLAINTS OF PAIN. ON NASAL CANNULA WITH O2 3 L. ON MONITOR SR HR ON THE 80'S. IV LINE ON THE RIGHT HAND G 20: INTACT AND IN PLACE, PATENT ON FLUSHING. PATIENT AMBULATORY. FAMILY MEMBER IS AT THE BEDSIDE .SAFETY PRECAUTIONS OBSERVED AND MAINTAINED IN PLACE. CALL LIGHT IN REACH.WILL CONTINUE TO MONITOR.
--- NOTE | 2018-04-11 11:30 | NUR ---
CONCRETE TESTERART PREPARATOR NOTE PATIENT TRANSFERRED TO [facility] WITH ACLS PROTOCOL IN STABLE CONDITION.FAMILY AT BEDSIDE.REPORT GIVEN TO MICAH RN FOR HUMBERTO.TOOK ALL BELONGINGS..
[2018-04-11] MEDS: ATORVASTATIN 10 MG TABLET PO SCH (17:48)
--- NOTE | 2018-04-11 19:26 | NUR ---
RN NOTES RECEIVED REPORT FROM CATERINA PEREZ FOR CONTINUITY OF CARE. ROOM PREPARED. AWAITING PATIENT'S ARRIVAL
--- NOTE | 2018-04-11 19:34 | NUR ---
RN NOTES PATIENT ENDORSED FOR CONTINUITY OF CARE. NO ACUTE CHANGES WITHIN THE SHIFT. ALL NURSING NEEDS ATTENDED AND MET. SAFETY PRECAUTIONS IN PLACE AT ALL TIMES. CALL LIGHT WITHIN REACH
--- NOTE | 2018-04-11 19:40 | NUR ---
TD RN NOTES RECEIVED PT ON BED. WITH FAMILY AT BEDSIDE. ON NASAL CANNULA 3LPM NO RESPIRATORY DISTRESS NOTED. IV ACCESS ON RAC #20 SALINE LOCK. HEAD OF BED ELEVATED. SIDE RAILS UP. CALL LIGHT WITHIN REACH. BED ALARM ON. WILL CONTINUE TO MONITOR PT CLOSELY.
[2018-04-11] MEDS: ZOLPIDEM TARTRATE 5 MG TABLET PO PRN (21:18)
[2018-04-11] MEDS: *INSULIN REGULAR(HUMULIN R)HUM 100 UNIT/ML VIAL SQ PRN (21:18)
[2018-04-12] VITALS: BP 112/49
[2018-04-12 04:00] VITALS: BP 128/54
--- NOTE | 2018-04-12 06:27 | NUR ---
TD RN NOTES NO ACUTE CHANGES NOTED THROUGHOUT THE SHIFT. DUE MEDS GIVEN. PROVIDED COMFORT AND SAFETY. HEAD OF BED ELEVATED. SIDE RAILS UP. CALL LIGHT WITHIN REACH. WILL ENDORSE TO THE AM NURSE FOR CONTINUITY OF CARE.
--- NOTE | 2018-04-12 07:30 | NUR ---
DELMI RN AM NOTES RECEIVED PT SITTING IN ON CHAIR. WITH FAMILY AT BEDSIDE. ON NASAL CANNULA 3LPM NO RESPIRATORY DISTRESS NOTED. TELEMETRY READS SR HR 89. DENIES PAIN OR DISCOMFORT AT THIS TIME. IV ACCESS ON RAC #20 SALINE LOCK. HEAD OF BED ELEVATED. SIDE RAILS UP. CALL LIGHT WITHIN REACH. BED ALARM ON. WILL CONTINUE TO MONITOR PT CLOSELY.
[2018-04-12 08:00] VITALS: BP 123/51
[2018-04-12] MEDS: BLOOD SUGAR DIAGNOSTIC 1 EACH STRIP VI SCH ×3 (08:07→17:14)
--- NOTE | 2018-04-12 08:14 | NUR ---
TD RN NOTES ACCUCHECK DONE. BS 318 MG/DL. 12 UNITS HUM R GIVEN PER SS
[2018-04-12] MEDS: METFORMIN 500 MG TABLET PO SCH ×2 (08:46→17:13)
[2018-04-12] MEDS: FERROUS SULFATE (325 MG) 325 MG/TAB TABLET PO SCH ×2 (08:46→17:13)
[2018-04-12] MEDS: DOCUSATE SODIUM 100 MG CAPSULE PO SCH ×2 (08:46→17:13)
[2018-04-12] MEDS: ATENOLOL 50 MG TABLET PO SCH (08:47)
[2018-04-12] MEDS: ENALAPRIL MALEATE (10 MG) 10 MG TABLET PO SCH (08:47)
[2018-04-12] MEDS: INSULIN REGULAR, HUMAN 100 UNIT/ML 3 ML VIAL SQ PRN ×3 (08:49→17:21)
--- NOTE | 2018-04-12 09:30 | NUR ---
[facility] RN NOTES DUE MEDS GIVEN
--- NOTE | 2018-04-12 11:47 | NUR ---
TD RN NOTES ACCUCHECK DONE. BS 274 MG/DL. 9 UNITS HUM R GIVEN PER SS
[2018-04-12 12:00] VITALS: BP 111/59
[2018-04-12 16:00] VITALS: BP 107/57
--- NOTE | 2018-04-12 16:57 | NUR ---
DELMI RN NOTES REPORT GIVEN TO ZACH DIGGS AT [facility]. PATIENT GOING TO ROOM 510 -A. SOAP GRINDER AT 1800.
[2018-04-12] MEDS: ATORVASTATIN 10 MG TABLET PO SCH (17:13)
--- NOTE | 2018-04-12 17:18 | NUR ---
TD RN NOTES ACCUCHECK DONE. BS 167 MG/DL. 3 UNITS HUM R GIVEN PER SS
[2018-04-12 17:44] LABS: OCCULT BLOOD STOOL NEGATIVE (NEGATIVE)
--- NOTE | 2018-04-12 18:43 | NUR ---
TD RN NOTES PATIENT DISCHARGED/TRANSFERRED TO [facility] PER MD IN STABLE CONDITION FOR PLEUREX CATHETER INSERTION. PROVIDED DC INSTRUCTIONS, HEALTH TEACHINGS AND MED RECON LIST. CD OF ALL DIAGNOSTICS GIVEN. RIGHT PORT A CATH AND RT AC G 20 INTACT CDI DRESSINGS. SITE CLEAR. ALL NEEDS MET. ALL BELONGINGS CHECKED AND RETURNED. ALL PAPER WORKS SIGNED. PATIENT PICKED UP BY AMBULANCE CREW AND WILL TRANSPORT PATIENT TO FACILITY RM 510-1.
== END 2018-04-12 18:45 | disposition short-term general hospital (02) | DRG 382 ==
LOC: ER 14:36 → ICU 21:32 → TELE-TD 04-11 11:25
PROVIDERS: ADMIT Internal Medicine; ATTEND Nurse Practitioner Acute Care
PROC: 0W9B3ZZ Drainage of Left Pleural Cavity, Percutaneous Approach (ICD-10-PCS; principal; 2018-04-09)
DX: C50.919 Malignant neoplasm of unspecified site of unspecified female breast (principal); J96.01 Acute respiratory failure with hypoxia; J91.0 Malignant pleural effusion; C78.01 Secondary malignant neoplasm of right lung; C78.02 Secondary malignant neoplasm of left lung; J94.8 Other specified pleural conditions; E11.9 Type 2 diabetes mellitus without complications; D47.3 Essential (hemorrhagic) thrombocythemia; C79.51 Secondary malignant neoplasm of bone; D50.9 Iron deficiency anemia, unspecified; D63.8 Anemia in other chronic diseases classified elsewhere; E78.5 Hyperlipidemia, unspecified; E66.2 Morbid (severe) obesity with alveolar hypoventilation; I10 Essential (primary) hypertension; K21.9 Gastro-esophageal reflux disease without esophagitis; Z90.12 Acquired absence of left breast and nipple; Z68.33 Body mass index [BMI] 33.0-33.9, adult; Z79.899 Other long term (current) drug therapy; Z79.84 Long term (current) use of oral hypoglycemic drugs
CPT/HCPCS: 36415; 36600; 71045-TC; 71250-TC; 76942-TC; 80048-TC; 80061-TC; 82272-TC; 82728-TC; 82962-TC; 83540-TC; 83735-TC; 84100-TC; 85025-TC; 85730-TC; 86300; 87081-TC; A4606; G0378; J1815; Z7610

== ENCOUNTER 2018-05-11 21:44 | Inpatient (IN) | payer MEDICARE, OTHER ==
[~2018-05-11] VITALS: Ht 147.3 cm; Wt 78.9 kg
--- NOTE | 2018-05-11 22:13 | NUR ---
PT BIBRA C/O SOB, HEADACHE X1 HR. PT IS AOX4. PT STATES "ITS DIFFICULT TO BREATH". PT ON MONITOR IN BED 11. WILL CONTINUE TO MONITOR.
--- NOTE | 2018-05-11 22:40 | NUR ---
FAMILY AT BEDSIDE.
[2018-05-11 23:11] LABS: BASOPHILS % (AUTO) 0.3 % (0.0-2.0); EOSINOPHILS % (AUTO) 0.4 % (0.0-6.0); HEMATOCRIT 29 % (33-45); HEMOGLOBIN 9.1 g/dL (11.5-14.8); LYMPHOCYTES # (AUTO) 1.3 /CMM (0.8-4.8); LYMPHOCYTES % (AUTO) 16.9 % (20.0-44.0); MEAN CORPUSCULAR HGB CONC 31 g/dl (31.0-36.0); MEAN CORPUSCULAR VOLUME 80 fL (82-100); MONOCYTES # (AUTO) 0.7 /CMM (0.1-1.30); MONOCYTES % (AUTO) 9.1 % (2.0-12.0); NEUTROPHILS # (AUTO) 5.7 /CMM (1.8-8.9); NEUTROPHILS % (AUTO) 73.3 % (43.0-81.0); PLATELET COUNT (AUTO) 380 /CMM (150-450); RED BLOOD CELL COUNT(AUTO) 3.64 MIL/uL (4.0-5.2); WHITE BLOOD COUNT (AUTO) 7.7 K/uL (4.3-11.0)
--- NOTE | 2018-05-11 23:13 | NUR ---
PT TAKEN TO RADIOLOGY VIA [facility]
[2018-05-11 23:30] LABS: ALANINE AMINOTRANSFERASE 15 U/L (12-78); ALBUMIN 2.3 g/dL (3.4-5.0); ALKALINE PHOSPHATASE 196 U/L (46-116); ASPARTATE AMINOTRANSFERASE 30 U/L (15-37); B-TYPE NATRIURETIC PEPTIDE 411 PG/ML (0-125); BILIRUBIN,DIRECT 0.1 mg/dL (0.0-0.2); BILIRUBIN,TOTAL 0.5 mg/dL (0.2-1.0); CALCIUM, SERUM 8.7 mg/dL (8.5-10.1); CHLORIDE 91 mmol/L (98-107); CREATININE 0.8 mg/dL (0.6-1.3); GLUCOSE 330 mg/dL (74-106); POTASSIUM 4.7 mmol/L (3.5-5.1); SODIUM SERUM 132 mmol/L (136-145); TOTAL PROTEIN, SERUM 7.7 g/dL (6.4-8.2); UREA NITROGEN, BLOOD 18 mg/dL (7-18)
[2018-05-11 23:31] LABS: CARBON DIOXIDE 40 mmol/L (21-32)
[2018-05-12] MEDS ORDERED: LEVOFLOXACIN 750 MG /D5W 150ML PIGGYBACK IV ONE
[2018-05-12] MEDS ORDERED: AZTREONAM 1 G in IV NS 0.9% 100 ML IV ONE ×2
[2018-05-12] MEDS ORDERED: AZTREONAM 1 G VIAL ONE (00:10)
[2018-05-12] MEDS ORDERED: LEVOFLOXACIN 750 MG /D5W 150ML 150 ML IV ONE (00:11)
--- NOTE | 2018-05-12 00:22 | NUR ---
URINE COLLECTED AND SENT TO LAB
[2018-05-12 00:28] LABS: APPEARANCE,URINE Cloudy (CLEAR); BILIRUBIN,URINE SMALL (NEGATIVE); BLOOD, URINE Trace-intact Ery/uL (NEGATIVE); COLOR,URINE Yellow (YELLOW); KETONES,URINE Trace (NEGATIVE); LEUKOCYTE ESTERASE ,URINE Large (NEGATIVE); NITRITE, URINE Negative (NEGATIVE); PROTEIN,URINE 30 mg/dl (NEGATIVE); UGLUCOSE Negative (NEGATIVE); UROBILINOGEN,URINE 0.2 EU/dL (0.2)
--- NOTE | 2018-05-12 00:29 | NUR ---
BED 116-2
[2018-05-12 00:49] LABS: BACTERIA,URINE Many /HPF (None Seen); SQUAMOUS EPITHELIAL CELL,UR Moderate /HPF (None Seen); WBC,URINE 51-80 /HPF (0-3)
[2018-05-12 00:50] LABS: MUCUS,URINE Few /LPF (None Seen)
--- NOTE | 2018-05-12 00:58 | NUR ---
CALLED TO GIVE REPORT TO TELE NURSE. NURSE TO CALL BACK.
--- NOTE | 2018-05-12 01:04 | NUR ---
REPORT GIVEN TO CATERINA HILL
--- NOTE | 2018-05-12 01:24 | NUR ---
ZAID ENDORSED TO FLOOR
[2018-05-12 01:30] VITALS: BP 131/78
[2018-05-12] MEDS ORDERED: ACETAMINOPHEN 325 MG TABLET PO PRN (01:30)
[2018-05-12] MEDS ORDERED: MAGNESIUM HYDROXIDE 30 ML UDC PO PRN (01:30)
[2018-05-12] MEDS ORDERED: ZOLPIDEM TARTRATE 5 MG TABLET PO PRN (01:30)
[2018-05-12] MEDS ORDERED: FUROSEMIDE 100 MG/10 ML VIAL IV ONE (01:30)
[2018-05-12] MEDS ORDERED: MAG HYDROX/AL HYDROX/SIMETH 30 ML UDC PO PRN (01:30)
[2018-05-12] MEDS ORDERED: DEXTROSE 50%-WATER 50 ML DISP.SYRIN IV PRN (01:30)
[2018-05-12] MEDS ORDERED: BLOOD SUGAR DIAGNOSTIC 1 EACH STRIP VI SCH (01:30)
[2018-05-12] MEDS ORDERED: ONDANSETRON HCL/PF 4 MG/2 ML VIAL IVP PRN (01:30)
[2018-05-12] MEDS ORDERED: LEVOFLOXACIN 750 MG /D5W 150ML 750 MG in PREMIX 1 EA IV ONE (02:00)
[2018-05-12] MEDS ORDERED: FUROSEMIDE 20 MG/2 ML VIAL IV ONE (02:00)
[2018-05-12] MEDS ORDERED: PIPERACILLIN /TAZOBACTAM 3.375 G in IV D5W 50 ML IV ONE (02:00)
--- NOTE | 2018-05-12 03:00 | NUR ---
RN admitting notes Received patient from ER via gurney, transported via ACLS. Patient in no acute distress. connected to tele, SR at 70s. on 4Lpm of O2 via NC, wheezing noted on upper lobes and diminished breath sounds on lower lobes. patient unable to lay flat, uncomfortable even with pillows and HOB elevated. Patient preferred to rest sitting up in chair. skin is intact. noted with R IJ port-a-cath, L lower back Pleurx, dressing intact. IV ATB as ordered. son at bedside at all times. needs anticipated and met. call light in reach. will monitor closely.
[2018-05-12] MEDS ORDERED: PIPERACILLIN /TAZOBACTAM 3.375 G VIAL IV ONE (03:28)
[2018-05-12] MEDS: HEPARIN SODIUM, PORCINE 5000 UNITS/1 ML VIAL SQ SCH ×3 (03:37→21:54)
[2018-05-12 04:00] VITALS: BP 106/52
[2018-05-12] MEDS ORDERED: INSULIN REGULAR, HUMAN 100 UNIT/ML 10 ML VIAL SQ ONE (05:00)
[2018-05-12] MEDS ORDERED: PIPERACILLIN /TAZOBACTAM 3.375 G in IV D5W 50 ML IV SCH (06:00)
[2018-05-12 06:28] LABS: BASOPHILS % (AUTO) 0.2 % (0.0-2.0); EOSINOPHILS % (AUTO) 0.5 % (0.0-6.0); HEMATOCRIT 29 % (33-45); LYMPHOCYTES # (AUTO) 1.4 /CMM (0.8-4.8); LYMPHOCYTES % (AUTO) 20.6 % (20.0-44.0); MEAN CORPUSCULAR HGB CONC 31 g/dl (31.0-36.0); MEAN CORPUSCULAR VOLUME 79 fL (82-100); MONOCYTES # (AUTO) 0.5 /CMM (0.1-1.30); MONOCYTES % (AUTO) 7.7 % (2.0-12.0); NEUTROPHILS # (AUTO) 4.9 /CMM (1.8-8.9); PLATELET COUNT (AUTO) 393 /CMM (150-450); RED BLOOD CELL COUNT(AUTO) 3.64 MIL/uL (4.0-5.2); WHITE BLOOD COUNT (AUTO) 6.9 K/uL (4.3-11.0)
[2018-05-12 06:45] LABS: CALCIUM, SERUM 8.7 mg/dL (8.5-10.1); CREATININE 0.8 mg/dL (0.6-1.3); POTASSIUM 4.2 mmol/L (3.5-5.1)
[2018-05-12 06:46] LABS: MAGNESIUM 1.4 mg/dL (1.8-2.4); PHOSPHORUS 3.3 mg/dL (2.5-4.9)
--- NOTE | 2018-05-12 07:03 | NUR ---
RN NOTE received critical value of carbon dioxide = 41. previous value at ER prior to admit is 40. patient has been on 4Lpm via NC overnight, no distress. paged Epic on-call, awaiting call back. will endorse accordingly. Addendum: 05/12/18 at 0708 by SERGIO MONTE RN [address] Falcon[facility] relayed critical value of CO2=41. NNO at this time.
--- NOTE | 2018-05-12 07:47 | NUR ---
NURSE EMERGENCY ROOM NOTES RECEIVED PT FROM [facility]. PT SITTING ON THE CHAIR WAITING FOR HER BREAKFAST TRAY. SHE IS ALERT AND ORIENTED X4. NO COMPLAINS OF PAIN. ON NC 4L. NO SOB. NO DISCOMFORT. CALL LIGHT WITHIN REACH. WILL MONITOR CLOSELY. Addendum: 05/12/18 at 1755 by TRISTAN BURDEN RN 07 PT WITH PORTHA CATH ON THE R CHEST WALL. AND LEFT POSTERIOR MID CHEST PLEURA VAC DRAINAGE TUBE IN PLACED AND CLAMPED.
[2018-05-12 08:00] VITALS: BP 98/55
[2018-05-12] MEDS: *INSULIN REGULAR(HUMULIN R)HUM 100 UNIT/ML VIAL SQ PRN ×4 (08:48→21:53)
[2018-05-12] MEDS: PIPERACILLIN /TAZOBACTAM 3.375 G in IV D5W 100 ML IV SCH ×2 (08:53→17:24)
[2018-05-12] MEDS: BLOOD SUGAR DIAGNOSTIC 1 EACH STRIP VI SCH ×4 (08:54→21:25)
[2018-05-12] MEDS: Magnesium 1GM/D5W 100ML PREMIX 100 ML IV SCH ×4 (10:09→13:37)
--- NOTE | 2018-05-12 11:08 | NUR ---
CASE FINISHING MACHINE ADJUSTER NOTE PT UP ON THE CHAIR. FAMILY ON BEDSIDE. ON MAGNESIUM IV DUE TO LOW LEVEL OF MG. COMPLAINED OF FLUSHING OF FACE. VS 100/42 94% ON 4L NC 85 98.3. WILL NOTIFY DOCTOR. FAMILY NOTICED POOR APPETITE. JANELLE RN X RAY SERVICE ENGINEER OK'D TO ORDER DIETARY CONSULT. WILL MONITOR PT CLOSELY.
[2018-05-12 12:00] VITALS: BP 106/56
--- NOTE | 2018-05-12 12:16 | NUR ---
ASSET PROTECTION REPRESENTATIVE NOTES DR HERNANDEZ ON BEDSIDE. AWARE ABOUT THE PATIENT'S FLUSHING FACE. FAMILY ON BEDSIDE WELL. Addendum: 05/12/18 at 1223 by MIRTHA PALMA RN DR HERNANDEZ ALSO AWARE OF THE CHEST XRAY RESULT. WILL F/U WITH DR CRENSHAW [employer] POL[employer] LAUNCH COMMANDER.
--- NOTE | 2018-05-12 13:07 | NUR ---
[facility] RN NOTE PER DIETARY OK TO ORDER GLUCERNA TID , ORDER CARRIED OUT
--- NOTE | 2018-05-12 15:17 | NUR ---
MANAGER LOSS PREVENTION NOTES ROUNDS MADE. NOT IN DISTRESS. FAMILY ON BEDSIDE. WILL CONT TO MONITOR.
[2018-05-12 16:00] VITALS: BP_SYST 138; BP_DIAS 56; BP_DIAS 66
[2018-05-12] MEDS: GLUCERNA SHAKE 237 ML CAN PO SCH (17:28)
--- NOTE | 2018-05-12 18:48 | NUR ---
RECREATION LEADER NOTE PT ON CHAIR. FAMILY ON BEDSIDE. NOT IN DISTRESS. CONT ZOSYN ORDERED. ON OXYGEN 4L NC. NO SOB. WILL CONT TO MONITOR CLOSELY.
[2018-05-12 20:00] VITALS: BP 151/75
[2018-05-13] VITALS: BP 136/70
[2018-05-13] MEDS ORDERED: FUROSEMIDE 20 MG/2 ML VIAL IV SCH
[2018-05-13] MEDS ORDERED: FUROSEMIDE 40 MG/4 ML VIAL IV SCH
[2018-05-13 00:01] LABS: ABG BASE EXCESS 14.4 mmol/L; ABG OXYGEN SATURATION 95.8 % (92.0-98.5); ABG PCO2 47.5 mmHg (35.0-45.0); ABG PH 7.529 (7.350-7.450); ABG PO2 80.3 mmHg (75.0-100.0); AaDO2 121.3 mmHg; COHb 0.3 % (0.5-1.5); MetHb 0.3 % (0.0-1.5); O2Hb 95.2 % (94.0-97.0); SITE, ABG Right Radial; VENT MODE, BG Nasal Cannula
--- NOTE | 2018-05-13 00:16 | NUR ---
PT IN NON COMPLIANT WITH CARE, WELL FAMILY, ON FLUID RESTRICTION, BUT FAMILY CONT' TO PROVIDE PT WITH THEIR OWN WATER DESPITE TEACHING PROVIDED. DAUGHTER C/O PT IS LABORED BREATHING, VS STABLE O2 SAT 94%, NOTIFIED DEVELOPMENT VICE PRESIDENT [facility] CAME TO ASSES PT, WITH ORDER FOR ABG, AND LASIX 80MG X1 DOSE. ABG DONE RESULTS SENT TO [facility] DEVELOPMENT VICE PRESIDENT. Addendum: 05/13/18 at 0043 by PORTER OREILLY RN DAUGHTER UPSET BECAUSE, I TOLD HER TO FOLLOW THE FLUID RESTRICTION ORDER AND THE PT , EARLIER PT BS 342 TOLD FAMILY TO STOP GIVING PT CAKE AND SODA, BUT CONT' TO BE NON COMPLIANT WELL WALKING THE PT WITHOUT CALLING FOR STAFF FOR ASSISTANCE. ALL SUGGESTED NON PHARMACOLOGICOL INTERVENTION HAVE BEEN REJECTED BY FAMILY AT BED SIDE, PT NOT ABLE REST.
[2018-05-13] MEDS: HYDROCODONE/APAP 5/325MG 1 EACH TABLET PO PRN ×2 (00:45→09:23)
--- NOTE | 2018-05-13 00:45 | NUR ---
TD RN NOTE: RECEIVED PT SITTING ON CHAIR ALERT BUT WITH EPISODES OF CONFUSION. DAUGHTER AT BEDSIDE. NO APPARENT DISTRESS NOTED. COMPLAINED OF GENERALIZED PAIN, PRN PAIN MEDS WILL BE GIVEN. ON 4LPM NASAL CANNULA. SINUS TACHY ON TELE MONITOR HR 104BPM. CALL LIGHT PLACED WITHIN REACH. ENCOURAGED TO CALL FOR ASSISTANCE IF NEEDED. KEPT CLEAN, DRY AND COMFORTABLE. SAFETY AND FALL PRECAUTIONS OBSERVED AND MAINTAINED. WILL CONTINUE TO MONITOR PT.
[2018-05-13] MEDS: PIPERACILLIN /TAZOBACTAM 3.375 G in IV D5W 100 ML IV SCH ×3 (01:08→18:22)
[2018-05-13 04:00] VITALS: BP 133/70
--- NOTE | 2018-05-13 06:47 | NUR ---
TD RN NOTE: NO CHANGES NOTED THROUGHOUT THE SHIFT. NO APPARENT DISTRESS NOTED. DENIES PAIN AND DISCOMFORT AT THIS TIME. ON 4LPM NASAL CANNULA, SATURATING WELL. SINUS TACHY ON TELE MONITOR HR 106BPM. KEPT CLEAN, DRY AND COMFORTABLE. CALL LIGHT PLACED WITHIN REACH. SAFETY AND FALL PRECAUTIONS OBSERVED AND MAINTAINED. WILL ENDORSE TO DAY SHIFT RN FOR CONTINUITY OF CARE.
--- NOTE | 2018-05-13 07:12 | NUR ---
RN INITIAL NOTES: Rec'd pt awake on bed, ambulating inside her room w/ niece at bedside. Pt not on any distress, on NC at 4lpm, A/O x 1-2 w/ confusion per niece. On telemonitor, ST 108 bpm. Has R CW portacath. Has R hand G20 SL (not flushing well) & RFA G22 SL, flushing well, no s/sx of infection/infiltration noted. Pt is ambulatory w/ niece at bedside. Health teaching done re: fall risk, offered walker but pt/niece refused. Per niece, she's always going to be there to assist her. Reinforcement teaching also done re: fluid restriction w/ verbalization of understanding. Safety precaution in place. Bed in locked & lowest pos. Call light placed w/in reach. Will continue to monitor & attend pt needs.
[2018-05-13] MEDS: BLOOD SUGAR DIAGNOSTIC 1 EACH STRIP VI SCH ×4 (07:39→21:29)
[2018-05-13] MEDS: INSULIN REGULAR, HUMAN 100 UNIT/ML 3 ML VIAL SQ PRN ×3 (07:40→17:32)
[2018-05-13 08:00] VITALS: BP 117/56
[2018-05-13] MEDS: HEPARIN SODIUM, PORCINE 5000 UNITS/1 ML VIAL SQ SCH ×2 (08:46→21:28)
[2018-05-13 09:18] LABS: BASOPHILS % (AUTO) 0.4 % (0.0-2.0); EOSINOPHILS % (AUTO) 0.1 % (0.0-6.0); HEMATOCRIT 28 % (33-45); HEMOGLOBIN 8.9 g/dL (11.5-14.8); LYMPHOCYTES # (AUTO) 1.1 /CMM (0.8-4.8); MEAN CORPUSCULAR HGB CONC 31 g/dl (31.0-36.0); MEAN CORPUSCULAR VOLUME 78 fL (82-100); MONOCYTES # (AUTO) 0.6 /CMM (0.1-1.30); NEUTROPHILS % (AUTO) 79.5 % (43.0-81.0); PLATELET COUNT (AUTO) 401 /CMM (150-450); RED BLOOD CELL COUNT(AUTO) 3.62 MIL/uL (4.0-5.2); WHITE BLOOD COUNT (AUTO) 8.8 K/uL (4.3-11.0)
[2018-05-13] MEDS: GLUCERNA SHAKE 237 ML CAN PO SCH ×3 (09:22→17:27)
[2018-05-13 09:35] LABS: CALCIUM, SERUM 8.6 mg/dL (8.5-10.1); CREATININE 0.8 mg/dL (0.6-1.3); MAGNESIUM 1.6 mg/dL (1.8-2.4); PHOSPHORUS 3.1 mg/dL (2.5-4.9); POTASSIUM 4.1 mmol/L (3.5-5.1)
--- NOTE | 2018-05-13 10:10 | NUR ---
Pt seen & examined by Dr. Arenas. Concerns of pt's niece were addressed by . Per , may drain L pleurx now & give Morphine as ordered.
[2018-05-13] MEDS ORDERED: HYDROMORPHONE INJ 0.5 MG/0.5 ML SYRINGE IV PRN (10:30)
[2018-05-13] MEDS ORDERED: MORPHINE SULFATE INJ 2 MG/ML DISP.SYRIN IV PRN (10:30)
[2018-05-13] MEDS ORDERED: acetaZOLAMIDE SODIUM 500 MG/VIAL VIAL IV ONE (10:30)
--- NOTE | 2018-05-13 11:00 | NUR ---
Called pt's son Magdy at [phone], made him aware re: pt's current status & POC. He also informed that Dilaudid was ordered as PRN. Will do pleurx draining per MD's order. Per pharmacist, Morphine drug was changed to Dilaudid d/t Morphine only given for chest pain dx. Morales Curran made aware & that pt has no allergy to any drug.
--- NOTE | 2018-05-13 11:15 | NUR ---
Pt premedicated w/ Dilaudid first prior to draining the L pleurx drain. RN was able to drain 100cc, Dr. Meza made aware. Procedure was done in aseptic technique.
[2018-05-13 12:00] VITALS: BP 152/67
--- NOTE | 2018-05-13 15:12 | NUR ---
Pt seen & examined by Dr. Meza & Dr. Cedeño. Concerns/issues (pain, sleeping & respiration) of pt's (at bedside) & son (who's on the phone speaker) were addressed by the 2 MD's.
[2018-05-13 16:00] VITALS: BP_SYST 105; BP_DIAS 67; BP_DIAS 89
[2018-05-13] MEDS: Magnesium 1GM/D5W 100ML PREMIX 100 ML IV SCH ×2 (16:14→17:24)
--- NOTE | 2018-05-13 18:54 | NUR ---
RN CLOSING NOTES: Pt sitting comfortably on her chair. Pt not on any distress, on NC at 4lpm, still w/ episode of confusion. On telemonitor, still ST. R CW portacath intact. New RFA G22 SL, flushing well, w/ no s/sx of infection/infiltration noted. Pt seen & examined by Dr. Emerson, son at bedside, per MD recommendation to increase Ambien to 10 mg qHS PRN - Dr. Cedeño made aware, awaiting response. Safety precaution kept in place. Bed in locked & lowest pos. Call light placed w/in reach. Will endorse to PM RN for HUMBERTO.
--- NOTE | 2018-05-13 19:30 | NUR ---
TAYLOR RN INITIAL SHIFT NOTES RECEIVED REPORT FROM NURSE HENNING. RECEIVED PATIENT IN BED, AWAKE, A/O X 2 WITH PERIODS OF CONFUSION, MAORI SPEAKING, WITH FAMILY AT BEDSIDE, ABLE TO TRANSLATE. ON O2 VIA NC @ 4LPM, TOLERATING WELL, NO S/S OF RESPIRATORY DISTRESS AT THIS TIME, BUT PT DOES EXPERIENCE SOB UPON EXERTION. 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 RIGHT FOREARM #22 GAUGE PATENT AND INTACT, FLUSHED WITH NS, FREE FROM ANY S/S OF INFILTRATION OR PHLEBITIS. PLAN OF CARE DISCUSSED WITH PATIENT AND FAMILY MEMBERS, ALL VERBALIZING UNDERSTANDING REGARDING THE PLAN OF CARE
[2018-05-13 20:00] VITALS: BP 149/64
--- NOTE | 2018-05-13 20:00 | NUR ---
RN NOTES NO RESPONSE BACK FROM DR HERNANDEZ REGARDING AMBIEN ORDERS. 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 ORDER READ BACK FOR CLARIFICATION. EXPLAINED NEW ORDERS TO PT AND PT'S SON, BOTH VERBALIZING UNDERSTANDING.
[2018-05-13] MEDS ORDERED: TEMAZEPAM 7.5 MG CAPSULE PO PRN (20:30)
[2018-05-13] MEDS: *INSULIN REGULAR(HUMULIN R)HUM 100 UNIT/ML VIAL SQ PRN (21:30)
--- NOTE | 2018-05-13 21:30 | NUR ---
RN NOTES RESTORIL 7.5MG ADMINISTERED PER REQUEST OF FAMILY MEMBERS, WHOM REMAIN AT BEDSIDE. PATIENT ASSISTED BACK TO BED. WILL MONITOR CLOSELY
--- NOTE | 2018-05-13 22:00 | NUR ---
RN NOTES PER FAMILY, PATIENT MORE CONFUSED COMPARED TO BASELINE AFTER SLEEPING PILL WAS GIVEN. PATIENT REORIENTED FREQUENTLY, EFFECTIVE. WILL CONTINUE CLOSE MONITORING
--- NOTE | 2018-05-13 22:30 | NUR ---
RN NOTES PATIENT SITTING IN CHAIR, MENTAL STATUS IMPROVED, BACK TO BASELINE MENTAL STATUS OF A/O X2 WITH PERIODS OF CONFUSION.
[2018-05-14] VITALS: BP 125/67
[2018-05-14] MEDS: PIPERACILLIN /TAZOBACTAM 3.375 G in IV D5W 100 ML IV SCH (01:26)
[2018-05-14 04:00] VITALS: BP 128/62
[2018-05-14 06:49] LABS: BASOPHILS % (AUTO) 0.2 % (0.0-2.0); EOSINOPHILS % (AUTO) 0.2 % (0.0-6.0); HEMATOCRIT 28 % (33-45); HEMOGLOBIN 8.9 g/dL (11.5-14.8); LYMPHOCYTES # (AUTO) 1.1 /CMM (0.8-4.8); LYMPHOCYTES % (AUTO) 12.8 % (20.0-44.0); MEAN CORPUSCULAR HGB CONC 32 g/dl (31.0-36.0); MEAN CORPUSCULAR VOLUME 79 fL (82-100); MONOCYTES # (AUTO) 0.7 /CMM (0.1-1.30); MONOCYTES % (AUTO) 7.9 % (2.0-12.0); NEUTROPHILS # (AUTO) 6.9 /CMM (1.8-8.9); NEUTROPHILS % (AUTO) 78.9 % (43.0-81.0); PLATELET COUNT (AUTO) 411 /CMM (150-450); RED BLOOD CELL COUNT(AUTO) 3.56 MIL/uL (4.0-5.2); WHITE BLOOD COUNT (AUTO) 8.7 K/uL (4.3-11.0)
--- NOTE | 2018-05-14 07:00 | NUR ---
RN CLOSING SHIFT NOTES PATIENT CONTINUES TO AMBULATE IN ROOM, STEADY, FAMILY MEMBER AT PATIENT'S SIDE FOR ASSISTANCE WHEN NEEDED. WILL ENDORSE THE PATIENT TO THE AM SHIFT NURSE FOR CONTINUITY OF CARE
[2018-05-14 07:01] LABS: CALCIUM, SERUM 8.9 mg/dL (8.5-10.1); CREATININE 0.9 mg/dL (0.6-1.3); MAGNESIUM 1.9 mg/dL (1.8-2.4); PHOSPHORUS 3.4 mg/dL (2.5-4.9)
--- NOTE | 2018-05-14 07:05 | NUR ---
RN NOTES RECEIVED PT SITTING A CHAIR , ALERT/ CONFUSED , TURKISH SPEAKING , SUPPORTIVE FAMILY AT THE BEDSIDE, ON O2 4L NC , NO SOB NOTED, ON TELE ST HR IN 100'S , RIGHT FOREARM IV SITE G 22, CLEAN , DRY AND INTACT, L UPPER BACK PLEURX TUBE INTACT, NO DISTRESS NOTED AT THIS TIME, CONTINUE TO MONITOR .
--- NOTE | 2018-05-14 07:15 | NUR ---
RN NOTES SPOKE TO PHARMACY REGARDING ISSUE WITH INTERVAL DOSING OF ZOSYN. PATIENT IS ALREADY A HIGH FALL RISK DUE TO SOB, UNSTEADY AT TIMES. DUE TO SOB, PATIENT ON O2 BUT INSISTS ON AMBULATING AROUND ROOM, LONG TUBING IN USE, ALSO INCREASING RISK FOR FALLS. PER PHARMACY, THEY WILL CHANGE ZOSYN ADMINISTRATION SCHEDULE BACK TO REGULAR DOSING.
[2018-05-14 08:00] VITALS: BP 133/52
[2018-05-14] MEDS: GLUCERNA SHAKE 237 ML CAN PO SCH ×3 (08:00→16:19)
--- NOTE | 2018-05-14 08:00 | NUR ---
RN NOTES PT PULLED R FA IV OUT, PT IS HARD STICK , TRIED TWICE TO ACCESS IV LINE, NO SUCCESS , DR HERNANDEZ AND AND NURSING CALIBRATION TECHNICIAN NOTED, ORDER RECEIVED FOR MIDLINE .
[2018-05-14] MEDS: HEPARIN SODIUM, PORCINE 5000 UNITS/1 ML VIAL SQ SCH ×2 (08:07→21:35)
[2018-05-14] MEDS: INSULIN REGULAR, HUMAN 100 UNIT/ML 3 ML VIAL SQ PRN (08:10)
[2018-05-14] MEDS: BLOOD SUGAR DIAGNOSTIC 1 EACH STRIP VI SCH ×4 (08:11→21:38)
[2018-05-14] MEDS: POTASSIUM CHLORIDE 20 MEQ TAB.PRT.SR PO SCH ×3 (10:07→13:16)
[2018-05-14] MEDS: HYDROCODONE/APAP 5/325MG 1 EACH TABLET PO PRN (10:11)
--- NOTE | 2018-05-14 10:14 | NUR ---
RN NOTES NO IV ACCESS AT THIS TIME . AWAITING FOR MIDLINE NURSE .
[2018-05-14] MEDS: *INSULIN REGULAR(HUMULIN R)HUM 100 UNIT/ML VIAL SQ PRN ×3 (11:43→21:41)
[2018-05-14] MEDS: ZOSYN IVPB 3.375 G in IV D5W 50ml IV SCH ×3 (11:47→21:34)
[2018-05-14 12:00] VITALS: BP 128/47
[2018-05-14] MEDS ORDERED: POTASSIUM CHLORIDE 20 MEQ TAB.PRT.SR PO SCH (12:00)
--- NOTE | 2018-05-14 14:00 | NUR ---
RN NOTES PT SITTING ON CHAIR , SUPPORTIVE FAMILY AT THE BEDSIDE, CONTINUE TO MONITOR .
[2018-05-14 16:00] VITALS: BP 137/65
--- NOTE | 2018-05-14 18:22 | NUR ---
RN NOTE VSS STABLE, PT STILL SITTING ON A CHAIR , STATED IT IS EASIER TO BREATH SITTING UP. R UPPER ARM MIDLINE SITE CLEAN , DRY AN INTACT, NO SIGNIFICANT CHANGES NOTED ON THIS SHIFT , WILL ENDOSE TO MANAGED CARE DIRECTOR NURES FOR CONTINUITY OF CARE
--- NOTE | 2018-05-14 19:53 | NUR ---
MS RN NOTE PT IN BED SITTING ON THE SIDE. A/O X 1, GAMBIAN SPEAKING. NO SOB, NO DISTRESS OR DISCOMFORT NOTED. PER FAMILY PT DENIES PAIN. PT FEELS COMFORTABLE SITTING UP FOR BREATHING. REMAIN ON 4L O2 VIA N/C. RFA #22 G S/L INTACT AND PATENT. FAMILY AT BED SIDE. SIDE RAILS UP X 2 AND CALL LIGHT WITHIN REACH. VSS. CONTINUE TO MONITOR HER.
[2018-05-14 20:00] VITALS: BP 138/68
--- NOTE | 2018-05-14 22:00 | NUR ---
MS RN NOTE BS CHECKED 449, 10 UNITS OF REGULAR INSULIN GIVEN. ALSO PAGED FRENCH CHANG FOR ANY NEW ORDERS, BUT NO NEW ORDERS GIVEN. JUST RECHECK IT LATER. CONTINUE TO MONITOR THE PT.
[2018-05-14] MEDS ORDERED: TEMAZEPAM 15 MG CAPSULE PO PRN (22:30)
--- NOTE | 2018-05-15 02:30 | NUR ---
MARKET DEVELOPMENT TRAINER NOTE REPORT GIVEN TO NURSE ARREOLA FOR CONTINUE TO CARE.
--- NOTE | 2018-05-15 02:40 | NUR ---
MSRN NOTE: RECEIVED REPORT FROM ALDO, PATIENT SITTING UP IN CHAIR. NO ACUTE DISTRESS NOTED. WILL CONTINUE TO MONITOR.
--- NOTE | 2018-05-15 03:30 | NUR ---
MS RN NOTE: PATIENT BLOOD SUGAR RECHECKED, 329MG/DL, INFORMED TECHNICAL SUPPORT PROFESSIONAL DEEPTHI OCASIO, CHARLENE. NO ADDITIONAL INSULIN COVERAGE AT THIS TIME, TO RECHECK AGAIN BLOOD SUGAR AT 730AM. NO S/S OF HYPERGLYCEMIA NOTED. WILL CONTINUE TO MONITOR.
[2018-05-15] MEDS: ZOSYN IVPB 3.375 G in IV D5W 50ml IV SCH ×2 (04:03→09:15)
--- NOTE | 2018-05-15 06:45 | NUR ---
MS RN NOTE: PATIENT SITTING UP IN CHAIR, NO ACUTE DISTRESS NOTED. BREATHING EVEN AND UNLABORED, NO SOB NOTED. OXYGEN IN PLACE. MIDLINE TO RIGHT UPPER ARM IN PLACE. PATIENT BLOOD SUGAR LEVEL 360MG/DL, PATIENT TO RECEIVE 15 UNITS OF INSULIN PER SLIDING SCALE. NO S/S OF HYPERGLYCEMIA NOTED. CALL LIGHT IN REACH. WILL ENDORSE TO DAY NURSE TO CONTINUE WITH PLAN OF CARE.
[2018-05-15] MEDS: BLOOD SUGAR DIAGNOSTIC 1 EACH STRIP VI SCH ×2 (06:47→11:12)
[2018-05-15] MEDS: INSULIN REGULAR, HUMAN 100 UNIT/ML 3 ML VIAL SQ PRN ×3 (06:53→18:07)
--- NOTE | 2018-05-15 07:30 | NUR ---
received care of patient. daughter at bedside. a/ox3 sitting in chair. per patient unable to lie flat and unable to sleep for a while now. noted with labored breathing however o2 sat 98% per patient she does not feel sob and states breathing has improved. patient with occlusive dressing to right post chest; pending md orders for drainage and maintenance. per [facility] rn comes 2xweek to drain. per report yesterday rn had order to drain and removed 100ml. iv site c/d/i/p. patient ambulatory with min assist. safety, skin, aspiration precautions in place and will monitor
[2018-05-15 08:00] VITALS: BP 146/49
[2018-05-15] MEDS: GLUCERNA SHAKE 237 ML CAN PO SCH ×3 (08:00→17:00)
[2018-05-15 08:25] LABS: CALCIUM, SERUM 9.3 mg/dL (8.5-10.1); CREATININE 0.8 mg/dL (0.6-1.3); POTASSIUM 3.9 mmol/L (3.5-5.1)
--- NOTE | 2018-05-15 08:35 | NUR ---
md aware of patient blood sugars elevated and non compliant hx.
[2018-05-15] MEDS: HEPARIN SODIUM, PORCINE 5000 UNITS/1 ML VIAL SQ SCH ×2 (08:51→21:06)
[2018-05-15] MEDS: Z GUARD REMEDY 2 OZ OINT TP PRN (11:18)
[2018-05-15] MEDS ORDERED: DEXTROSE 50%-WATER 50 ML DISP.SYRIN IV PRN (13:30)
[2018-05-15] MEDS ORDERED: *INSULIN REGULAR(HUMULIN R)HUM 100 UNIT/ML VIAL SQ PRN (13:30)
--- NOTE | 2018-05-15 13:30 | NUR ---
ok to change to aggressive sliding scale
[2018-05-15] MEDS: PIPERACILLIN /TAZOBACTAM 3.375 G in IV D5W 100 ML IV SCH ×2 (14:57→23:18)
[2018-05-15 16:00] VITALS: BP_SYST 156; BP_DIAS 60; BP_DIAS 80
[2018-05-15] MEDS: BLOOD SUGAR DIAGNOSTIC 1 EACH STRIP IN SCH ×2 (18:06→21:05)
--- NOTE | 2018-05-15 19:22 | NUR ---
care endorsed to chandler canales for cleo. patient aooears less sob and decreased effort of breathing. o2 sat stable. all due meds given and all needs met. iv site c/d/i/p. patient educated on fluid restriction and diabetic diet and family educated as well. patient sitting in chair without complication
[2018-05-15 20:00] VITALS: BP 119/72
[2018-05-16] VITALS (24 sets, daily range): BP systolic 104–164; BP diastolic 59–101
[2018-05-16] MEDS: BLOOD SUGAR DIAGNOSTIC 1 EACH STRIP IN SCH ×5 (06:51→20:47)
[2018-05-16] MEDS: INSULIN REGULAR, HUMAN 100 UNIT/ML 3 ML VIAL SQ PRN ×4 (06:51→21:01)
[2018-05-16 07:07] LABS: BASOPHILS % (AUTO) 0.2 % (0.0-2.0); EOSINOPHILS % (AUTO) 0.3 % (0.0-6.0); HEMATOCRIT 31 % (33-45); HEMOGLOBIN 9.5 g/dL (11.5-14.8); LYMPHOCYTES # (AUTO) 1.4 /CMM (0.8-4.8); LYMPHOCYTES % (AUTO) 9.1 % (20.0-44.0); MEAN CORPUSCULAR HGB CONC 30 g/dl (31.0-36.0); MEAN CORPUSCULAR VOLUME 80 fL (82-100); MONOCYTES # (AUTO) 1.1 /CMM (0.1-1.30); MONOCYTES % (AUTO) 6.9 % (2.0-12.0); NEUTROPHILS % (AUTO) 83.5 % (43.0-81.0); PLATELET COUNT (AUTO) 484 /CMM (150-450); RED BLOOD CELL COUNT(AUTO) 3.91 MIL/uL (4.0-5.2); WHITE BLOOD COUNT (AUTO) 15.6 K/uL (4.3-11.0)
--- NOTE | 2018-05-16 07:55 | NUR ---
RN INITIAL NOTES PT OUT OF BED TO CHAIR WITH FAMILY MEMBER AT . SEEN AND ASSESSED BY DR GABRIEL. PT HAS NO COMPLAINTS MADE. REMAINS ON O2 INH VIA NC. WILL MONITOR ACCORDINGLY
[2018-05-16] MEDS ORDERED: DEXTROSE 50%-WATER 50 ML DISP.SYRIN IV PRN (08:00)
[2018-05-16] MEDS: IPRATROPIUM NEB FS 0.5 MG/2.5 ML AMPUL.NEB NEB SCH ×5 (08:00→23:44)
[2018-05-16] MEDS: GLUCERNA SHAKE 237 ML CAN PO SCH ×3 (08:00→16:59)
[2018-05-16] MEDS ORDERED: INSULIN GLARGINE, 100 UNIT/ML CARTRIDGE SQ ONE (08:00)
[2018-05-16 08:31] LABS: CALCIUM, SERUM 9.6 mg/dL (8.5-10.1); CREATININE 0.8 mg/dL (0.6-1.3); MAGNESIUM 1.8 mg/dL (1.8-2.4); PHOSPHORUS 3.8 mg/dL (2.5-4.9); POTASSIUM 3.9 mmol/L (3.5-5.1)
[2018-05-16] MEDS: HEPARIN SODIUM, PORCINE 5000 UNITS/1 ML VIAL SQ SCH ×2 (08:38→20:50)
--- NOTE | 2018-05-16 08:49 | NUR ---
rn notes pt seen and assessed by dr shelton with order to transfer pt to icu for further care. pt awake and alert with some diff of breathing while lying down; pt on o2 inh via nc @ 4L/min. rt chest prota cath noted, iv access intact. bs= 311, called Janel from pharmacy for insulin vial. pt denies pain at this time. family at bs and aware with poc. RT at bs. to tranfer pt to rm [id number] with rn radhaivsoramirez washburn.
--- NOTE | 2018-05-16 09:02 | NUR ---
rn notes transported pt to icu via bed , bs report given to aftsa
[2018-05-16 09:05] LABS: ABG BASE EXCESS 8.4 mmol/L; ABG OXYGEN SATURATION 89.4 % (92.0-98.5); ABG PCO2 95.5 mmHg (35.0-45.0); ABG PH 7.224 (7.350-7.450); ABG PO2 68.5 mmHg (75.0-100.0); AaDO2 77.4 mmHg; COHb 0.4 % (0.5-1.5); MetHb 0.4 % (0.0-1.5); O2Hb 88.7 % (94.0-97.0); SITE, ABG Right Radial; VENT MODE, BG NASAL CANNULA
--- NOTE | 2018-05-16 09:35 | NUR ---
C.O.D. CLERKBILINGUAL SOCIAL WORKER NOTES RECEIVED PT FROM TAYLOR RN. RT AND DR. ODONNELL AT BEDSIDE. PT NOTED TO BE A BIT CONFUSED AT THIS TIME. ABLE TO FOLLOW SIMPLE COMMANDS WHEN PROMPTED. PT NOTED TO BE USING ACCESSING MUSCLES TO AID IN BREATHING. BIBPAP INITIATED. PT HAS A CURRENT RATE OF 16BPM FI02 60% AND A PEEP OF 5. PT CURRENTLY SATING AT 94%. VSS. RIGHT UPPER ARM MIDLINE NOTED TO BE PATENT AND INTACT. NO REDNESS OR SIGNS OF INFILTRATION NOTED. RIGHT CHEST WALL PERMACATH NOTED. ABG RESULTS RELAYED TO MD. PT ORIENTED TO ROOM AND USE OF CALL LIGHT. BED IN LOW LOCKED POSITION, SIDE RIAL SUP X3, CALL LIGHT WITHIN REACH. PT'S FAMILY AT BEDSIDE. WILL AWAIT FRO FURTHER MD ORDERS AND CONTINUE TO MONITOR
[2018-05-16 12:33] LABS: ABG BASE EXCESS 9.8 mmol/L; ABG OXYGEN SATURATION 98.5 % (92.0-98.5); ABG PCO2 85.2 mmHg (35.0-45.0); ABG PH 7.277 (7.350-7.450); AaDO2 168.1 mmHg; COHb 0.1 % (0.5-1.5); MetHb 0.7 % (0.0-1.5); O2Hb 97.7 % (94.0-97.0); SITE, ABG Right Radial; VENT MODE, BG BIPAP 20/5 R 16 60%
--- NOTE | 2018-05-16 12:40 | NUR ---
APPLIED PSYCHOLOGY PROFESSOR NOTES: THORACENTESIS PT S/P THORACENTESIS. 1 L OF PLEURAL FLUID REMOVED AND SENT TO LAB FOR CYTOLOGY. VSS. CXR OBTAINED. NO PNEUMOTHORAX SEEN. WILL CONTINUE TO MONITOR
--- NOTE | 2018-05-16 14:02 | NUR ---
PLANTING MATERIAL CARRIER NOTES: WOUND ASSESSMENT PT NOTED TO HAVE ABDOMINAL FOLD AND PERINEAL REDNESS. WOUND CARE CONSULT ORDERED. NYSTATIN POWER AND ZGUARD ORDERED UNTIL FURTHER ASSESSED BY WOUND CARE NURSE. WOUND/SKIN CARE PLAN INITIATED
[2018-05-16] MEDS ORDERED: Z GUARD REMEDY 2 OZ OINT TP PRN (15:00)
--- NOTE | 2018-05-16 15:12 | NUR ---
KITCHEN LEAD NOTES: INSERTION OF KOHLER TELEPHONE ORDER OBTAINED FROM DR. GABRIEL TO INSERT KOHLER FOR I/O MONITORING. KOHLER CATHETER INSERTED PER HOSPITAL PROTOCOL. PT HAD 150CC OUTPUT OF CLEAR YELLOW URINE. WILL CONTINUE TO MONITOR
[2018-05-16] MEDS: NYSTATIN TOP POWDER 15 GM BOTTLE TP SCH (16:59)
--- NOTE | 2018-05-16 19:19 | NUR ---
DISTRICT COURT BAILIFF CLOSING NOTES PT REMAINS STABLE. ALL NEEDS WERE MET DURING SHIFT AND ORDERS CARRIED OUT ACCORDINGLY. ALL DUE MEDS GIVEN., PRN CARE RENDERED. MIDLINE REMAINS PATENT AND INTACT. VSS. PT ON 5L VIA NC AT THIS TIME SHE WAS EATING DINNER. RT MADE AWARE AND STATES THAT HE WILL RESUME BIPAP ONCE SHE IS FINISHED. REPORT ENDORSE TO CATERINA HUGHES FOR HUMBERTO
--- NOTE | 2018-05-16 19:30 | NUR ---
EVENTS DIRECTOR NOTE PT RECEIVED A/O X2-3 WITH NOTED CONFUSION AND RESTLESSNESS. HOB ELEVATED. WAITING FOR RT TO BE PLACED BACK ON BIPAP. FAMILY AT BEDSIDE. DENIES PAIN. HOB ELEVATED AND ON ASPIRATION PRECAUTIONS. IV JHONNY MIDLINE PATENT, FLUSHING WELL AND CLEAN. KOHLER CATHETER IN PLACE AND DRAINING BY GRAVITY. WILL CONTINUE TO MONITOR.
--- NOTE | 2018-05-16 19:36 | NUR ---
RCVD PT ON BIPAP 25/ , RATE 16, 50%. WILL CONTINUE TO MONITOR THE PT.
[2018-05-16] MEDS: ALPRAZOLAM 0.25 MG TABLET PO PRN (20:47)
[2018-05-17] VITALS (46 sets, daily range): BP systolic 106–169; BP diastolic 26–122
[2018-05-17] MEDS: BLOOD SUGAR DIAGNOSTIC 1 EACH STRIP IN SCH ×6 (00:53→21:20)
[2018-05-17] MEDS: INSULIN REGULAR, HUMAN 100 UNIT/ML 3 ML VIAL SQ PRN ×6 (00:56→21:30)
[2018-05-17] MEDS: IPRATROPIUM NEB FS 0.5 MG/2.5 ML AMPUL.NEB NEB SCH ×7 (03:31→23:32)
[2018-05-17 04:35] LABS: BASOPHILS % (AUTO) 0.1 % (0.0-2.0); EOSINOPHILS % (AUTO) 0.2 % (0.0-6.0); HEMATOCRIT 28 % (33-45); HEMOGLOBIN 8.7 g/dL (11.5-14.8); LYMPHOCYTES # (AUTO) 1.1 /CMM (0.8-4.8); LYMPHOCYTES % (AUTO) 14.5 % (20.0-44.0); MEAN CORPUSCULAR HGB CONC 31 g/dl (31.0-36.0); MEAN CORPUSCULAR VOLUME 80 fL (82-100); MONOCYTES # (AUTO) 0.6 /CMM (0.1-1.30); MONOCYTES % (AUTO) 8.4 % (2.0-12.0); NEUTROPHILS # (AUTO) 5.6 /CMM (1.8-8.9); NEUTROPHILS % (AUTO) 76.8 % (43.0-81.0); PLATELET COUNT (AUTO) 401 /CMM (150-450); RED BLOOD CELL COUNT(AUTO) 3.49 MIL/uL (4.0-5.2); WHITE BLOOD COUNT (AUTO) 7.3 K/uL (4.3-11.0)
[2018-05-17 04:47] LABS: CALCIUM, SERUM 9.2 mg/dL (8.5-10.1); CREATININE 0.6 mg/dL (0.6-1.3); MAGNESIUM 1.8 mg/dL (1.8-2.4); PHOSPHORUS 1.9 mg/dL (2.5-4.9); POTASSIUM 3.4 mmol/L (3.5-5.1)
--- NOTE | 2018-05-17 07:22 | NUR ---
FLORAL DESIGN TEACHER NOTE PT REMAINED STABLE DURING SHIFT. NO ACUTE DISTRESS NOTED. ALL NEEDS ATTENDED TO PROMPTLY. BIPAP ON ALL SHIFT AND WELL TOLERATED. KEPT CLEAN AND DRY. REPOSITIONED Q2H. ALL SAFETY MEASURES IN PLACE. WILL ENDORSE TO NEXT SHIFT FOR CONTINUITY OF CARE.
--- NOTE | 2018-05-17 07:41 | NUR ---
STATEMENT CLERKS SUPERVISOR NOTE RCVD PT AWAKE AND ALERT, ARABIC SPEAKING MOSTLY, SHOWING NO S/O DISTRESS, ST ON MONITOR, ON BIPAP TOLERATING WELL. KOHLER TO GRAVITY DRAINING CLEAR, YELLOW URINE. JHONNY MIDLINE C/D/I/PATENT. NO S/O INFILTRATION/PHLEBITIS OBSERVED UPON FLUSHING. RCW PORT-A-CATH NOT ACCESSED, DRESSING C/D/I OBSERVED OVER LEFT LATERAL/POSTERIOR BACK FOR PLEUREX ACCESS. WILL CONTINUE TO MONITOR PT FOR SAFETY AND COMFORT. BED IN LOW AND LOCKED POSITION. CALL LIGHT WITHIN REACH. HEAD OF BED ELEVATED.
[2018-05-17] MEDS: GLUCERNA SHAKE 237 ML CAN PO SCH ×3 (08:00→17:38)
[2018-05-17 08:31] LABS: ABG OXYGEN SATURATION 95.4 % (92.0-98.5); ABG PCO2 55.4 mmHg (35.0-45.0); ABG PH 7.459 (7.350-7.450); ABG PO2 76.7 mmHg (75.0-100.0); AaDO2 144.8 mmHg; COHb 0.9 % (0.5-1.5); MetHb 0.6 % (0.0-1.5); SITE, ABG Right Radial; VENT MODE, BG ST 25/5 16 40%
[2018-05-17] MEDS: HEPARIN SODIUM, PORCINE 5000 UNITS/1 ML VIAL SQ SCH ×2 (08:49→21:23)
[2018-05-17] MEDS: NYSTATIN TOP POWDER 15 GM BOTTLE TP SCH ×2 (08:51→17:38)
[2018-05-17] MEDS: Z GUARD REMEDY 2 OZ OINT TP PRN (08:51)
--- NOTE | 2018-05-17 09:29 | NUR ---
Pt taken off BiPAP and placed on O2 via nasal cannula, keeping SpO2 greater or equal to 90% per Dr Herrera. Addendum: 05/17/18 at 0932 by HAKAN MCGARRY RT Amended: Links added.
[2018-05-17] MEDS ORDERED: POTASSIUM CHLORIDE 20 MEQ TAB.PRT.SR PO SCH ×2 (09:30→12:00)
[2018-05-17] MEDS ORDERED: K PHOS NEUTRAL 250 MG TABLET PO ONE (11:00)
[2018-05-17 11:58] LABS: ABG BASE EXCESS 11.2 mmol/L; ABG OXYGEN SATURATION 94.9 % (92.0-98.5); ABG PCO2 64.2 mmHg (35.0-45.0); ABG PH 7.391 (7.350-7.450); AaDO2 101.2 mmHg; COHb 0.6 % (0.5-1.5); MetHb 0.3 % (0.0-1.5); SITE, ABG Right Radial; VENT MODE, BG 4LNC
--- NOTE | 2018-05-17 14:44 | NUR ---
ASSURANCE SENIOR MANAGER INSURANCE NOTE PT REQUESTED TO BE PLACED BACK ON BIPAP, CHECO, RT PLACED PT ON BIPAP. PT OBSERVED RESTING IN BED SHOWING NO S/O DISTRESS. PT'S NIECE AT BEDSIDE. THIS AM PT OBSERVED TRANSFERRING TO CHAIR AND BSC WITH MINIMAL ASSISTANCE. WILL CONTINUE TO MONITOR.
[2018-05-17] MEDS ORDERED: INSULIN GLARGINE, 100 UNIT/ML CARTRIDGE SQ ONE (18:00)
--- NOTE | 2018-05-17 18:35 | NUR ---
PUBLIC SCHOOL TEACHER NOTE PT AWAKE AND ALERT, PT'S FAMILY AT BEDSIDE, REMAINS ST ON MONITOR, SITTING UP ON CHAIR, OFF BIPAP AT THIS TIME TOLERATING WELL. KOHLER TO GRAVITY DRAINING CLEAR, YELLOW URINE. JHONNY MIDLINE C/D/I/PATENT, NO S/O INFILTRATION/PHLEBITIS OBSERVED UPON FLUSHING. LAST BG 452 AFTER GIVING 20 UNITS INSULIN COVERAGE BG 481 DR. HARVEY SANON MD RECOMMENDED TO GIVE ADDITIONAL 10 UNITS LANTUS AND TO CHECK BG TONIGHT PRIOR TO LANTUS 15 UNITS AT HS. PT'S CARE WILL BE ENDORSED TO WIRE DRAWING DIE MAKER RN FOR CONTINUITY OF CARE. BED IN LOW AND LOCKED POSITION. CALL LIGHT WITHIN REACH.
[2018-05-17] MEDS: ALPRAZOLAM 0.25 MG TABLET PO PRN (19:36)
[2018-05-17] MEDS: INSULIN GLARGINE, 100 UNIT/ML CARTRIDGE SQ SCH (21:28)
[2018-05-18] VITALS (46 sets, daily range): BP systolic 123–163; BP diastolic 58–119
[2018-05-18] MEDS: BLOOD SUGAR DIAGNOSTIC 1 EACH STRIP IN SCH ×6 (01:06→21:18)
[2018-05-18] MEDS: INSULIN REGULAR, HUMAN 100 UNIT/ML 3 ML VIAL SQ PRN ×4 (01:10→21:21)
[2018-05-18] MEDS: IPRATROPIUM NEB FS 0.5 MG/2.5 ML AMPUL.NEB NEB SCH ×6 (04:02→23:26)
[2018-05-18 04:58] LABS: BASOPHILS % (AUTO) 0.2 % (0.0-2.0); EOSINOPHILS % (AUTO) 0.3 % (0.0-6.0); HEMATOCRIT 28 % (33-45); HEMOGLOBIN 8.5 g/dL (11.5-14.8); LYMPHOCYTES # (AUTO) 1.5 /CMM (0.8-4.8); LYMPHOCYTES % (AUTO) 19.3 % (20.0-44.0); MEAN CORPUSCULAR HGB CONC 31 g/dl (31.0-36.0); MEAN CORPUSCULAR VOLUME 79 fL (82-100); MONOCYTES # (AUTO) 0.6 /CMM (0.1-1.30); MONOCYTES % (AUTO) 7.3 % (2.0-12.0); NEUTROPHILS # (AUTO) 5.5 /CMM (1.8-8.9); NEUTROPHILS % (AUTO) 72.9 % (43.0-81.0); PLATELET COUNT (AUTO) 410 /CMM (150-450); RED BLOOD CELL COUNT(AUTO) 3.49 MIL/uL (4.0-5.2); WHITE BLOOD COUNT (AUTO) 7.6 K/uL (4.3-11.0)
[2018-05-18 05:08] LABS: CALCIUM, SERUM 8.9 mg/dL (8.5-10.1); CREATININE 0.7 mg/dL (0.6-1.3); MAGNESIUM 1.8 mg/dL (1.8-2.4); PHOSPHORUS 1.9 mg/dL (2.5-4.9); POTASSIUM 3.1 mmol/L (3.5-5.1)
[2018-05-18] MEDS: GLUCERNA SHAKE 237 ML CAN PO SCH ×3 (07:58→17:43)
[2018-05-18] MEDS: NYSTATIN TOP POWDER 15 GM BOTTLE TP SCH ×2 (08:11→17:40)
[2018-05-18] MEDS: POTASSIUM CHLORIDE 20 MEQ TAB.PRT.SR PO SCH ×3 (08:11→10:24)
[2018-05-18] MEDS: HEPARIN SODIUM, PORCINE 5000 UNITS/1 ML VIAL SQ SCH ×2 (08:13→21:11)
--- NOTE | 2018-05-18 08:13 | NUR ---
INITIAL SHOVELER NOTE RCVD PT AWAKE AND ALERT, SHOWING NO S/O DISTRESS, ON BIPAP TOLERATING WELL. REQUESTING BIPAP TO BE REMOVED. PT WAS INFORMED THAT BIPAP WILL BE REMOVED AFTER BREATHING TX. ST ON MONITOR. LEFT PLEUREX DRESSING APPEARS C/D/I. KOHLER TO GRAVITY DRAINING YELLOW URINE. JHONNY MIDLINE C/D/I/PATENT. NO S/O INFILTRATION/PHLEBITIS OBSERVED UPON FLUSHING. PT HAS POOR APPETITE THIS AM. PT'S NIECE AT BEDSIDE. WILL CONTINUE TO MONITOR PT FOR SAFETY AND COMFORT. BED IN LOW AND LOCKED POSITION. CALL LIGHT WITHIN REACH. AFTER PT WAS TAKEN OFF BIPAP SHE WAS ASSISTED TO CHAIR TOLERATING O2 VIA NC 5L.
--- NOTE | 2018-05-18 08:36 | NUR ---
WOUND CARE CONSULT WOUND CARE RECEIVED CONSULT FOR ABDOMINAL FOLD AND PERINEAL REDNESS. WOUND CARE WILL DEFER CONSULT AND TREATMENT PLANS TO PLASTIC SURGICAL TEAM WHO ARE CURRENTLY FOLLOWING THIS PATIENT. PATIENT WITH KENNETH AT 15, ALL PRESSURE ULCER PREVENTION MEASURES ARE NOTED TO BE IN PLACE AT THIS TIME. WILL SEE PRN.
--- NOTE | 2018-05-18 09:32 | NUR ---
RT NOTE RECEIVED PT ON BIPAP. PT AWAKE AND ALERT. PT PLACED ON NC AT 5L. PT DAUGHTER AT BED SIDE. AMBU BAG AT BED SIDE. BIPAP ON STANDBY AT BED SIDE. NO DISTRESS NOTED AT MOMENT. Addendum: 05/18/18 at 0922 by MAGNOLIA LARA RT Amended: Links added.
[2018-05-18 10:01] LABS: ABG BASE EXCESS 12.4 mmol/L; ABG OXYGEN SATURATION 95.1 % (92.0-98.5); ABG PCO2 67.6 mmHg (35.0-45.0); ABG PH 7.386 (7.350-7.450); AaDO2 127.5 mmHg; COHb 0.3 % (0.5-1.5); MetHb 0.3 % (0.0-1.5); O2Hb 94.5 % (94.0-97.0); SITE, ABG Right Radial; VENT MODE, BG 5L NC
[2018-05-18] MEDS ORDERED: POTASSIUM CHLORIDE 20 MEQ TAB.PRT.SR PO SCH (11:00)
[2018-05-18] MEDS: Z GUARD REMEDY 2 OZ OINT TP PRN (12:25)
[2018-05-18] MEDS ORDERED: K PHOS NEUTRAL 250 MG TABLET PO ONE (13:30)
--- NOTE | 2018-05-18 18:51 | NUR ---
INDUSTRIAL ENGINEER NOTE PT REMAINS STABLE, BECOMING TIRED FROM WORK OF BREATHING, BIPAP OFFERED PT AGREED. RT CALLED PT WAS PLACED BACK ON BIPAP. REMAINS AWAKE AND ALERT, SHOWING NO S/O DISTRESS OR PAIN. PT'S FAMILY AT BEDSIDE. ST ON MONITOR. KOHLER TO GRAVITY DRAINING CLOUDY, YELLOW URINE. JHONNY MIDLINE C/D/I/PATENT. NO S/O INFILTRATION/PHLEBITIS OBSERVED UPON FLUSHING. PT'S CARE WILL BE ENDORSED TO MEDIA SERVICES SPECIALIST RN FOR CONTINUITY OF CARE. BED IN LOW AND LOCKED POSITION. CALL LIGHT WITHIN REACH. BED IN LOW AND LOCKED POSITION. HEAD OF BED ELEVATED. [id number] PT REQUESTING TO GET BIPAP OFF RT CALLED.
--- NOTE | 2018-05-18 20:00 | NUR ---
agricultural sciences professor notes recived pts in bed awake alert and responsive , family at bedside updated with pts condition ,pts on 3 liters of 02 via nasal cannula sating 94% no sob no distress noted v/s stable afebrile pts on st on the monitor.
--- NOTE | 2018-05-18 20:10 | NUR ---
curator horticultural museum note rt at bedside , pts was put on bipap settings avap tv 500 rate of 10 and 30% tolerated well o2 sat of 94% v/s stable afebrile.pts on f/c intact and patent ,with yellowish urine output , all needs attended too call light within reach kept pts clean dry and comfortable.v/s stable afebrile pts on st on the monitor.
--- NOTE | 2018-05-18 21:00 | NUR ---
forester silviculture notes due meds given as ordered , blood sugar at 9pm is 223mg/dl 8units of regular insulin given per sliding scale and lantus 15 units given as ordered, all needs attended too call ligh within reach kept pts clean dry and comfortable, rt at bedside breathing tx given as ordered.
[2018-05-18] MEDS: INSULIN GLARGINE, 100 UNIT/ML CARTRIDGE SQ SCH (21:23)
--- NOTE | 2018-05-18 22:03 | NUR ---
MEPILEX IN PLACE. Addendum: 05/18/18 at 2203 by HARESH OSBORNE RT Amended: Links added.
--- NOTE | 2018-05-18 23:00 | NUR ---
agricultural crop farm manager notes off bipap , pts put on 3liters of 02 via nc tolerated well .sating 92 %, will continue to monitor pts.
[2018-05-19] VITALS (12 sets, daily range): BP systolic 112–180; BP diastolic 58–90
--- NOTE | 2018-05-19 01:00 | NUR ---
staff nurse icu resource team notes blood sugar at 1am is 83 no insulin coverage given per sliding scale
[2018-05-19] MEDS: BLOOD SUGAR DIAGNOSTIC 1 EACH STRIP IN SCH ×6 (01:15→21:25)
[2018-05-19] MEDS: INSULIN REGULAR, HUMAN 100 UNIT/ML 3 ML VIAL SQ PRN ×6 (01:16→21:28)
[2018-05-19] MEDS: ALPRAZOLAM 0.25 MG TABLET PO PRN ×2 (02:13→20:07)
--- NOTE | 2018-05-19 03:00 | NUR ---
1cu rn notes pts was back on bipap settings of avap tv 500 rate 14 epap10 maximum pressure 35 fio2 30% sating 92%.
[2018-05-19] MEDS: IPRATROPIUM NEB FS 0.5 MG/2.5 ML AMPUL.NEB NEB SCH ×6 (03:54→23:04)
[2018-05-19 04:46] LABS: CALCIUM, SERUM 8.5 mg/dL (8.5-10.1); CREATININE 0.7 mg/dL (0.6-1.3); PHOSPHORUS 4.3 mg/dL (2.5-4.9); POTASSIUM 3.3 mmol/L (3.5-5.1)
--- NOTE | 2018-05-19 05:00 | NUR ---
agriculture mechanic notes received order from pts ok to transfer teddy status , report given to pj rn teddy , v/s stable afebrile , belongings also endorse including die cast supervisor phone and some personal belonging, pts in stable condition no sob no distress noted , blood sugar for 5am is 115 mg/dl no insulin coverage given per sliding scale, all needs attended too call light within reach , family was made aware of transfer,will endorse pts to pj for continuity of care.
--- NOTE | 2018-05-19 05:00 | NUR ---
RN NOTES RECEIVED PATIENT REPORT FRON PUTTY MAKER MAMIE. RECEIVED PT. FROM ICU, PATIENT IS A/OX4. PATIENT PLACED ON HULL MOLDER WITH HR OF 107. PATIENT PLACED ON BIPAP WITH SETTINGS OF TV 500, RATE 14 EPAP 10 MIN PRESSURE OF 20/ MAXIMUM 35, FIO2 30% AND TOLERATING THEM WALL WITH SPO2 OF 90% WITH RT AT THE BEDSIDE. PATIENT STATES THAT SHE DOES NOT HAVE ANY PAIN OR SOB AT THIS TIME. SKIN COLOR IS WNL. ALL SAFETY MEASURES ARE IMPLEMENTED, BED IN LOW, LOCKED POSITION, CALL LIGHT IN REACH. WILL CONTINUE TO MONITOR.
--- NOTE | 2018-05-19 05:05 | NUR ---
manager agricultural notes pts was tranfer to teddy room 115-2 via bed with secured entrance monitor in stable condition.
--- NOTE | 2018-05-19 08:08 | NUR ---
TAYLOR RN NOTES RECEIVED PT LYING IN BED ON BIPAP 500 RATE OF 10 30%. PT A/O X 3, V/S STABLE, KOHLER CATHETER INTACT AND DRAINING CLEAR YELLOW. UA MIDLINE G18 INTACT AND PATENT. SAFETY MEASURES IN PLACE, CALL LIGHT WITHIN REACH, BED IN LOW LOCKED POSITION.
--- NOTE | 2018-05-19 08:10 | NUR ---
RT NOTE: ALERT PATIENT RECEIVED ON AVAP 14, IPAP=20/35, EPAP=10, FI02=30%, TARGET TB=164. PATIENT WAS TAKEN OFF AVAP PER MD ORDER. BREATHING TREATMENT WAS GIVEN. PATIENT WOB INCREASED BUT REFUSED TO PUT MACHINE BACK ON. AT 0801-PATIENT AGREED TO AVAP AND PATIENT WAS PLACED BACK ON WITH PREVIOUS SETTING:AVAP 14, IPAP=20/35, EPAP=10, FI02=30%, T[employer] PU=726. PATIENT IS TOLERATING WELL, TV=210, SP02=93%. NURSE (JUVENCIO) NOTIFIED.
[2018-05-19] MEDS: GLUCERNA SHAKE 237 ML CAN PO SCH ×3 (09:16→17:26)
[2018-05-19] MEDS: NYSTATIN TOP POWDER 15 GM BOTTLE TP SCH ×2 (09:16→18:04)
[2018-05-19] MEDS: POTASSIUM CHLORIDE 20 MEQ TAB.PRT.SR PO SCH ×2 (09:25→11:00)
--- NOTE | 2018-05-19 14:17 | NUR ---
RT NOTE: RT WAS CALLED TO PATIENT'S ROOM DUE TO DESATURATION. PATIENT WAS PLACED BACK ON AVAP. MEPILEX IN PLACE AT THE BRIDGE OF PATIENT'S NOSE. PATIENT IS DROWSY BUT AROUSABLE. SP02=91% AT THIS TIME. WILL CONTINUE TO MONITOR.
[2018-05-19] MEDS ORDERED: POTASSIUM CHLORIDE 20 MEQ TAB.PRT.SR PO ONE (15:00)
--- NOTE | 2018-05-19 16:55 | NUR ---
RT NOTE: PATIENT TAKEN OFF AVAP BY NURSING STAFF. PATIENT IS ALERT IN BED RESTING,TACHYPNEIC BUT REFUSING TO PUT AVAP BACK ON. SP02=91%. FAMILY AT BEDSIDE. WILL CONTINUE TO MONITOR.
--- NOTE | 2018-05-19 18:15 | NUR ---
RT NOTE: PATIENT PLACED BACK ON AVAP DUE TO SOB AFTER USING THE COMMODE. RESUMED PRIOR SETTINGS. SEE CHARTING. TOLERATING WELL. NURSE AWARE. Addendum: 05/19/18 at 1822 by MOY DIXON RT MEPILEX IN PLACE ON PATIENT'S BRIDGE OF THE NOSE.
--- NOTE | 2018-05-19 20:27 | NUR ---
TAYLOR RN OPENING NOTES RECEIVED REPORT FROM ANA DIGGS. PATIENT A/A/O X2-3, ABLE TO MAKE NEEDS KNOWN. BREATHING EVEN & UNLABORED, TOLERATING BIPAP & SATING @ 90-91% PER MD ORDER. NO SOB OR DIFFICULTY BREATHING NOTED. ON TELE W/ SINUS TACH, HR 113. NO CARDIAC DISTRESS NOTED. RIGHT UPPER ARM MIDLINE INTACT & PATENT W/ DRESSING CDI. NO IVF @ THIS TIME. SAFETY MEASURES IN PLACE W/ SIDE RAILS UP & BED ALARM ON. ABLE TO AMBULATE W/ ASSIST TO BSC BUT INSTRUCTED TO USE CALL LIGHT FOR ASSISTANCE. @ BEDSIDE. WILL CONTINUE TO MONITOR.
[2018-05-19] MEDS: INSULIN GLARGINE, 100 UNIT/ML CARTRIDGE SQ SCH (21:26)
--- NOTE | 2018-05-19 23:08 | NUR ---
RT NOTE REPOSITIONED THE MASK TO RELIEVE PRESSURE. MEPILEX IN PLACE. Addendum: 05/19/18 at 2309 by MINDY SOLIS RT Amended: Links added. Addendum: 05/19/18 at 2327 by MINDY SOLIS RT RT NOTE. CORRECT NOTE. PLACED PATIENT ON NASAL MASK.
[2018-05-19] MEDS: HYDROCODONE/APAP 5/325MG 1 EACH TABLET PO PRN (23:22)
[2018-05-20] VITALS: BP 97/62
[2018-05-20] MEDS: BLOOD SUGAR DIAGNOSTIC 1 EACH STRIP IN SCH ×6 (01:06→21:54)
[2018-05-20] MEDS: IPRATROPIUM NEB FS 0.5 MG/2.5 ML AMPUL.NEB NEB SCH ×6 (03:10→23:52)
--- NOTE | 2018-05-20 03:18 | NUR ---
RT NOTE SWITCHED PATIENT TO FACE MASK. MEPILEX IN PLACE. Addendum: 05/20/18 at 0318 by MINDY SOLIS RT Amended: Links added.
[2018-05-20 04:00] VITALS: BP 135/73
--- NOTE | 2018-05-20 04:00 | NUR ---
TAYLOR RN NOTES CHECKED PATIENT'S BS = 52. GAVE TWO ORANGE JUICE BOXES. PATIENT STILL ALERT & ORIENTED. WILL RECHECK BS.
[2018-05-20] MEDS: INSULIN REGULAR, HUMAN 100 UNIT/ML 3 ML VIAL SQ PRN ×4 (05:27→22:27)
--- NOTE | 2018-05-20 05:30 | NUR ---
TAYLOR RN NOTES RECHECKED PATIENT'S BLOOD SUGAR AFTER GIVING 2 ORANGE JUICE. BS = 131.
[2018-05-20 08:00] VITALS: BP 114/62
--- NOTE | 2018-05-20 08:30 | NUR ---
RN NOTE PT WAS OFF BIPAP FOR BREAKFAST AND BREATHING THROUGH NASAL CANULA 2 L/MIN, COULD NOT TOLERATED, O2 SATURATION WENT DOWN TO 79%, SHORT OF BREATH, AND RT APPLIED BIPAP BACK TO PT. SATURATION WENT BACK TO 94%. WILL MONITOR PT CLOSELY. CALL LIGHT WITHIN REACH, SON AT BEDSIDE, AWARE ABOUT SITUATION.
[2018-05-20] MEDS: GLUCERNA SHAKE 237 ML CAN PO SCH ×3 (08:36→17:05)
[2018-05-20] MEDS: NYSTATIN TOP POWDER 15 GM BOTTLE TP SCH ×2 (08:37→17:08)
[2018-05-20 12:00] VITALS: BP 106/67
--- NOTE | 2018-05-20 14:27 | NUR ---
RN NOTE PT HAS PLEURX TUBE IN LEFT POSTERIOR CHEST DRAINED BUT ONLY FEW DROPS WERE OUT. SITE CLEANED AND DRESSING CHANGED. PT TOLERATED WELL. DR ODONNELL NOTIFIED, NO NEW ORDERS. WILL MONITOR PT CLOSELY.
[2018-05-20 16:00] VITALS: BP 126/67
--- NOTE | 2018-05-20 18:54 | NUR ---
RN NOTE PT URINE OUTPUT ONLY 200M L. PT HAS NOT HAD MUCH PO INTAKE TOO. MD AWARE NO NEW ORDERS YET. WILL MONITOR AND ENDORSE TO CHORE TENDER.
[2018-05-20] MEDS: ALPRAZOLAM 0.25 MG TABLET PO PRN (19:52)
[2018-05-20 20:00] VITALS: BP_SYST 118; BP_SYST 163; BP_DIAS 66; BP_DIAS 78
--- NOTE | 2018-05-20 21:01 | NUR ---
RT NOTE PATIENT WAS RECEIVED ON BIPAP ON NOTED SETTINGS. PATIENT AWAKE,ALERT AND RESPONSIVE. HHN INLINE TREATMENT WAS GIVEN. ALARMS ON AND AUDIBLE. AMBUBAG AT BEDSIDE. WILL CONTINUE TO MONITOR PATIENT. Addendum: 05/20/18 at 2108 by PHILLIP LARA RT Amended: Links added.
[2018-05-20] MEDS: INSULIN GLARGINE, 100 UNIT/ML CARTRIDGE SQ SCH (22:27)
[2018-05-21] VITALS: BP 111/58
[2018-05-21] MEDS: BLOOD SUGAR DIAGNOSTIC 1 EACH STRIP IN SCH ×6 (01:39→21:09)
[2018-05-21] MEDS: INSULIN REGULAR, HUMAN 100 UNIT/ML 3 ML VIAL SQ PRN ×2 (01:40→21:11)
[2018-05-21] MEDS: IPRATROPIUM NEB FS 0.5 MG/2.5 ML AMPUL.NEB NEB SCH ×5 (03:42→19:42)
[2018-05-21 04:00] VITALS: BP_SYST 126; BP_SYST 178; BP_DIAS 63; BP_DIAS 89
--- NOTE | 2018-05-21 06:53 | NUR ---
HYDROGEN TREATER PT TOLERATED BIPAP WELL. PT WITH EPISODES OF ANXIETY AND GETTING OUT OF BED. BED ALARM REMAINED ON. PT OOB TO CHAIR BUT QUICKLY RETURNED TO BED. PER FAMILY GIVE PT XANAX. FAMILY ALSO REQUESTING SLEEPING PILL IF XANAX INEFFECTIVE.
--- NOTE | 2018-05-21 07:15 | NUR ---
RN OPENING NOTES RECEIVED PATIENT IN BED. A/OX4, ABLE TO MAKE NEEDS KNOWN. NOT IN ANY FORM OF DISTRESS, ON BIPAP, NO SOB. DENIED PAIN OR DISCOMFORT AT THIS TIME. IV ACCESS INTACT AND PATENT. KEPT PATIENT SAFE AND COMFORTABLE. BED IN LOW/LOCKED POSITION, SIDERAILS UPX2, HOB ELEVATED, CALL LIGHT IN REACH. UMBERTO OCNTINUE TO MONITOR ACCORDINGLY
[2018-05-21 07:22] LABS: CALCIUM, SERUM 8.7 mg/dL (8.5-10.1); CREATININE 0.7 mg/dL (0.6-1.3); PHOSPHORUS 3.8 mg/dL (2.5-4.9); POTASSIUM 4.1 mmol/L (3.5-5.1)
--- NOTE | 2018-05-21 07:34 | NUR ---
RT NOTE PT REC'D ON BIPAP ON AVAPS MODE CHARTED. PT WAKE AND ALERT. NO SIGNS OF RESP DISTRESS OR SOB. NO REDNESS OR BLEEDING FROM FACE MASK. WILL CONTINUE TO MONITOR Addendum: 05/21/18 at 0916 by CINDY BOOTHE RT Amended: Links added.
--- NOTE | 2018-05-21 07:35 | NUR ---
ON TELE W/ SINUS TACH, HR 101. NO CARDIAC DISTRESS NOTED. RIGHT UPPER ARM MIDLINE INTACT & PATENT W/ DRESSING CDI. PT HAS PLEURX TUBE IN LEFT POSTERIOR CHEST, DRESSING C/D/I . WILL MONIOTR ACCORDINGLY
[2018-05-21 08:00] VITALS: BP 150/60
[2018-05-21] MEDS: GLUCERNA SHAKE 237 ML CAN PO SCH ×3 (08:00→16:45)
--- NOTE | 2018-05-21 09:08 | NUR ---
PT TAKEN OFF BIPAP AND PLACED ON 3LNC. ABG TO BE TAKEN IN [address] ODONNELL AND CATERINA AWARE Addendum: 05/21/18 at 0918 by CINDY BOOTHE RT Amended: Links added.
[2018-05-21] MEDS: NYSTATIN TOP POWDER 15 GM BOTTLE TP SCH ×2 (09:20→16:46)
[2018-05-21 09:34] LABS: BASOPHILS % (AUTO) 0.6 % (0.0-2.0); EOSINOPHILS % (AUTO) 0.4 % (0.0-6.0); HEMATOCRIT 30 % (33-45); HEMOGLOBIN 9.4 g/dL (11.5-14.8); LYMPHOCYTES # (AUTO) 1.7 /CMM (0.8-4.8); LYMPHOCYTES % (AUTO) 22.7 % (20.0-44.0); MEAN CORPUSCULAR HGB CONC 31 g/dl (31.0-36.0); MEAN CORPUSCULAR VOLUME 80 fL (82-100); MONOCYTES # (AUTO) 0.5 /CMM (0.1-1.30); MONOCYTES % (AUTO) 7.3 % (2.0-12.0); NEUTROPHILS # (AUTO) 5.2 /CMM (1.8-8.9); PLATELET COUNT (AUTO) 357 /CMM (150-450); RED BLOOD CELL COUNT(AUTO) 3.81 MIL/uL (4.0-5.2); WHITE BLOOD COUNT (AUTO) 7.5 K/uL (4.3-11.0)
[2018-05-21 10:41] LABS: ABG BASE EXCESS 10.9 mmol/L; ABG OXYGEN SATURATION 90.8 % (92.0-98.5); ABG PCO2 52.2 mmHg (35.0-45.0); ABG PH 7.458 (7.350-7.450); ABG PO2 64.8 mmHg (75.0-100.0); AaDO2 102.3 mmHg; COHb 0.5 % (0.5-1.5); MetHb 0.7 % (0.0-1.5); O2Hb 89.7 % (94.0-97.0); SITE, ABG Right Radial; VENT MODE, BG nasal cannula
[2018-05-21 10:57] LABS: BAND % (MANUAL) 1 % (0.0-5.0); LYMPHOCYTES % (MANUAL) 14 % (16-48); METAMYELOCYTES % 1 % (0-0); MYELOCYTES % 1 % (0-0); NEUTROPHILS % (MANUAL) 71 (42-76); REACTIVE LYMPHOCYTES 12 % (0-0)
--- NOTE | 2018-05-21 11:12 | NUR ---
RN NOTES PATIENT NOT TOLERATING 3LPM VIA NC. REQUESTED TO PLACE BIPAP. PLACED BIPAP BACK ON. RT AWARE, WILL NOTIFY DR ODONNELL. WILL CONTINUE TO MONIOTR ACCORDINGLY
--- NOTE | 2018-05-21 11:33 | NUR ---
RT NOTE ALTHOUGH ABG RESULTS SHOWED PT ABLE TO TOLERATE 3LNC, PT AND FAMILY REQUESTED TO KEEP BIPAP ON. RESEARCH PROFESSOR AND DR ODONNELL AWARE Addendum: 05/21/18 at 1137 by CINDY BOOTHE RT Amended: Links added.
[2018-05-21 12:00] VITALS: BP 138/71
[2018-05-21 16:00] VITALS: BP 152/82
--- NOTE | 2018-05-21 16:00 | NUR ---
RN NOTES NOTIFIED DR GABRIEL THAT PATIENT'S MEDRECON WASNT DONE. PER MD, SHE'LL DO IT.
--- NOTE | 2018-05-21 17:00 | NUR ---
RN NOTES PER SOURAV HAJI TO HAVE BIPAP ON.
--- NOTE | 2018-05-21 18:57 | NUR ---
RN CLOSING NOTES PATIENT IN STABLE CONDITION. NO SIGNIFICANT CHANGE DURING THE SHIFT. ALL NEEDS ATTENDED ND PROVIDED. ALL DUE MEDS ADMINISTERED ORDERED. KEPT PATIENT SAFE AND COMFORTABLE. BED IN LOW/LOCKED POSITION, HOB ELEVATED, SIDERAILS UPX2. CALL LIGHT IN REACH. WILL ENDORSED TO NIGHT RN FOR HUMBERTO
[2018-05-21 20:00] VITALS: BP 103/50
[2018-05-21] MEDS: INSULIN GLARGINE, 100 UNIT/ML CARTRIDGE SQ SCH (21:12)
--- NOTE | 2018-05-21 21:12 | NUR ---
RN NOTES HUMALOG AND LANTUS NOT ADMINISTERED DUE TO POOR APETITE
[2018-05-21] MEDS: ALPRAZOLAM 0.25 MG TABLET PO PRN (21:43)
[2018-05-21] MEDS ORDERED: MORPHINE SULFATE INJ 10 MG/ML DISP.SYRIN ONE (23:30)
[2018-05-22] MEDS ORDERED: MORPHINE SULFATE INJ 4 MG/ML DISP.SYRIN IV ONE (01:30)
--- NOTE | 2018-05-22 02:00 | NUR ---
PT ON MORPHINE DRIP, PT AWAKE, ALERT, RESTLESS, SITTING IN THE BED, PER FAMILY AND PATIENT'S REQUEST SPOKE TO SOFIA SMART INSPECTOR SEMICONDUCTOR WAFER WITH NEW ORDER OF ATIVAN 2MG IVP Q 2 HRS PRN. FAMILY AWARE
[2018-05-22] MEDS ORDERED: LORAZEPAM INJ 2 MG/ML VIAL IV PRN (02:30)
[2018-05-22 04:00] VITALS: BP 149/70
--- NOTE | 2018-05-22 07:00 | NUR ---
MS RN NOTES RECEIVED PT IN BED, RR BRADYPNEIC. COMFORT MEASURES NOTED. PT ON MORPHINE DRIP. FAMILY AT BEDSIDE. CALL LIGHT IN REACH. BED IN LOCKED/LOWEST POSITION. WILL CONT TO MONITOR.
--- NOTE | 2018-05-22 08:40 | NUR ---
MS RN NOTES PT STOPPED BREATHING, ABSENCE OF PULSE VERIFIED WITH RNGENARO. JANELLE, [employer]FFEE SHOP MANAGER NOTIFIED. FAMILY AT BEDSIDE.
--- NOTE | 2018-05-22 11:25 | NUR ---
MS RN NOTES POST MORTEM CARE COMPLETE WITH CANDY SPREADER/LINEN ROOM HOUSEPERSON. ALL LINES REMOVED EXCEPT PLEURAL DRAINAGE LINE. CHARGE NURSE NOTIFIED ABOUT LINE. [place] [facility] [place]
== END 2018-05-22 08:40 | disposition expired | DRG 177 ==
LOC: ER 21:50 → TELE1 05-12 00:42 → TELE-TD 05-12 01:33 → MEDSG1 05-14 12:05 → ICU 05-16 08:53 → TELE-TD 05-19 05:10 → TELE1 05-20 09:49 → MEDSG1 05-22 00:38
PROVIDERS: ADMIT Nurse Practitioner Acute Care; ATTEND Nurse Practitioner Acute Care
PROC: 05H633Z Insertion of Infusion Device into Left Subclavian Vein, Percutaneous Approach (ICD-10-PCS; 2018-05-14)
PROC: B547ZZA Ultrasonography of Left Subclavian Vein, Guidance (ICD-10-PCS; 2018-05-14)
PROC: 5A09457 Assistance with Respiratory Ventilation, 24-96 Consecutive Hours, Continuous Positive Airway Pressure (ICD-10-PCS; principal; 2018-05-16)
PROC: 0W993ZZ Drainage of Right Pleural Cavity, Percutaneous Approach (ICD-10-PCS; 2018-05-16)
DX: J15.6 Pneumonia due to other Gram-negative bacteria (principal); J96.01 Acute respiratory failure with hypoxia; J96.02 Acute respiratory failure with hypercapnia; I50.23 Acute on chronic systolic (congestive) heart failure; J91.0 Malignant pleural effusion; N39.0 Urinary tract infection, site not specified; E66.2 Morbid (severe) obesity with alveolar hypoventilation; E87.3 Alkalosis; Z51.5 Encounter for palliative care; D68.59 Other primary thrombophilia; G93.40 Encephalopathy, unspecified; C78.02 Secondary malignant neoplasm of left lung; C78.01 Secondary malignant neoplasm of right lung; C79.51 Secondary malignant neoplasm of bone; J98.11 Atelectasis; C50.919 Malignant neoplasm of unspecified site of unspecified female breast; I11.0 Hypertensive heart disease with heart failure; Z85.3 Personal history of malignant neoplasm of breast; E78.5 Hyperlipidemia, unspecified; F41.9 Anxiety disorder, unspecified; L30.4 Erythema intertrigo; K21.9 Gastro-esophageal reflux disease without esophagitis; Z66 Do not resuscitate; Z85.118 Personal history of other malignant neoplasm of bronchus and lung; Z90.10 Acquired absence of unspecified breast and nipple; E11.65 Type 2 diabetes mellitus with hyperglycemia; D63.8 Anemia in other chronic diseases classified elsewhere; Z68.36 Body mass index [BMI] 36.0-36.9, adult; Z79.4 Long term (current) use of insulin
CPT/HCPCS: 36415; 36569; 36600; 70450-TC; 71045-TC; 71250-TC; 76942-TC; 80048-TC; 80061-TC; 80076-TC; 81000-TC; 82803-TC; 82962-TC; 83605-TC; 83735-TC; 83880; 84100-TC; 84484-TC; 85025-TC; 85730-TC; 87040-TC; 87070-TC; 87075-TC; 87081-TC; 87086-TC; 87102-TC; 88305-TC; 88312-TC; 89051-TC; 94660; 94760-TC; 99082-TC; A4216; A6402; G0378; J1120; J1644; J1815; J1940; J1956; J2060; J2270; J2405; J2543; J3475; J3490; J7030; J7050; J7060